=== PATIENT | male | born 1980 | race Caucasian/White ===

== ENCOUNTER → 2017-02-12 14:46 | Outpatient (CLI) | payer MEDICAID, SELFPAY | PROVIDERS: PCP Internal Medicine Adolescent Medicine; Visit Provider Internal Medicine Adolescent Medicine | DX: G47.30 Sleep apnea, unspecified (principal); R06.83 Snoring; I10 Essential (primary) hypertension; E66.9 Obesity, unspecified | CPT/HCPCS: 95806 ==

== ENCOUNTER 2017-03-07 10:51 | Emergency (ER) | payer MEDICAID, SELFPAY ==
[2017-03-07 11:35] VITALS: BP 158/86; PULSE 71; RESP 18; TEMP 36.9; O2SAT 98; BMI 35.2
--- NOTE | 2017-03-07 11:40 | PC.NURSE ---
Pt sent to ER for further evaluation.
[2017-03-07 11:41] VITALS: BP 143/88; PULSE 75; RESP 18; TEMP 36.8; O2SAT 98; BMI 35.2
--- NOTE | 2017-03-07 11:48 | CT_ITS ---
CT head/brain wo con HISTORY: Left-sided numbness ITS.REASON: NUMBNESS LEFT SIDE ORDERING PHYSICIAN: Debbi Flowers PATIENT AGE: 36 years COMPARISON: 10/30/2014 TECHNIQUE: Axial images obtained without contrast. Brain and bone windows reviewed. FINDINGS: No midline shift, mass effect, intracranial hemorrhage, hydrocephalus, or extra-axial fluid collection is evident. The calvarium has an unremarkable appearance. No mastoid effusion. No sinus air-fluid levels.. There is a retention cyst involving the medial wall left maxillary sinus IMPRESSION: No change with no acute intracranial findings
[2017-03-07 12:05] LABS: Microscopic, Urine URINE MICROSCOPIC (MICROSCOPIC)
[2017-03-07 12:10] LABS: Appearance,Urine CLEAR (Clear); Bilirubin,Urine Negative (Negative); Blood, Urine Negative (Negative); Color,Urine YELLOW (Yellow); Glucose,Urine (UA) Negative (Negative); Ketones,Urine Negative (Negative); Leukocyte Esterase,Urine Negative (Negative); Nitrate,Urine Negative (Negative); PH,Urine 6.5 (5.0-8.5); Protein,Urine Negative (Negative); Specific Gravity, Urine <= 1.005 (1.005-1.030); Urobilinogen,Urine 0.2 EU/dl (0.2)
[2017-03-07 12:11] LABS: Basophils % 0.2 % (0.1-2.0); Eosinophils # 0.2 K/mm3 (0.0-0.4); Eosinophils % 2.8 % (0.1-12.0); Hematocrit 48.7 % (42.0-52.0); Hemoglobin 16.4 g/dL (14.1-18.0); Lymphocytes # 1.5 K/mm3 (0.7-4.5); Lymphocytes % 22.6 K/mm3 (10-50); Mean Corpuscular HGB Conc 33.6 g/dL (31.8-35.4); Mean Corpuscular Hemoglobin 29.7 pg (27.0-31.2); Mean Corpuscular Volume 88.3 fl (80-94); Mean Platelet Volume 8.4 fl (7.4-10.4); Monocytes # 0.3 K/mm3 (0.1-1.0); Monocytes % 5.2 % (1.7-9.3); Neutrophils # 4.5 K/mm3 (1.8-7.8); Neutrophils % 69.2 % (37.0-80.0); Platelet Count 261 K/mm3 (142-424); Red Blood Count 5.51 M/mm3 (4.60-6.20); Red Cell Distribution Width 12.3 % (11.5-17.5); White Blood Count 6.6 K/mm3 (4.8-10.8)
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
--- NOTE | 2017-03-07 12:31 | ED_ITS ---
ED Disposition Clinical Impression: Numbness, Blurry vision, Headache Disposition: Home, Self-Care Condition on Discharge: Good Additional Instructions: 1- DAILY ASPIRIN. 2- SEE DR ARAUJO FOR CERVICAL MRI. 3- SEE DR VIEYRA FOR FULL EYE EXAM. 4- RETURN IF NEEDED. Referrals: Andres Araujo MD [Primary Care Provider] - - Critical Care Critical Care Time: No Attestation: On 03/07/17, the high probability of a clinically significant, sudden or life threatening deterioration of the following system(s) required my full and direct attention, intervention and personal management. The time I documented below is in addition to time spent performing reported procedures but includes the following listed in this critical care notation. Medical Decision Making Vital Signs: 03/07/17 11:35 03/07/17 11:41 Temperature 98.4 F 98.2 F Temperature Source Temporal Artery Scan Oral Pulse Rate [Right Brachial] 71 75 Respiratory Rate 18 18 Blood Pressure [Right Arm] 158/86 143/88 Blood Pressure Mean [Right Arm] 110 106 Blood Pressure Source [Right Arm] Automatic Cuff Automatic Cuff Blood Pressure Position [Right Arm] Sitting Sitting 02 Sat by Pulse Oximetry 98 98 Oxygen Delivery Method Room Air Room Air - Lab Data Lab Results 03/07/17 11:55: WBC 6.6, RBC 5.51, Hgb 16.4, Hct 48.7, MCV 88.3, MCH 29.7, MCHC 33.6, RDW 12.3, Plt Count 261, MPV 8.4, Neut % (Auto) 69.2, Lymph % (Auto) 22.6 , [place] % (Auto) 5.2, Eos % (Auto) 2.8, Baso % (Auto) 0.2, Neut # (Auto) 4.5, Lymph # (Auto) 1.5, [place] # (Auto) 0.3, Eos # (Auto) 0.2, Baso # (Auto) 0.0 03/07/17 11:55: Sodium 144, Potassium 4.3, Chloride 104, Carbon Dioxide 31, Anion Gap 13.3, BUN 13, Creatinine 0.99, Estimated Creat Clear 172, Estimated GFR 86, Est GFR ( Amer) 103, Glucose 107 H, Calcium 9.2, Total Bilirubin 0.4, AST 37, ALT 82 H, Alkaline Phosphatase 112, Total Protein 7.8, Albumin 4.3 , Globulin 3.5 H, Albumin/Globulin Ratio 1.2 03/07/17 11:55: Hemoglobin A1c 5.5 03/07/17 11:55: Urine Color Yellow, Urine Appearance Clear, Urine pH 6.5, Ur Specific [place] <= 1.005, Urine Protein Negative, Urine Glucose (UA) Negative, Urine Ketones Negative, Urine Blood Negative, Urine Nitrate Negative, Urine Bilirubin Negative, Urine Urobilinogen 0.2, Ur Leukocyte Esterase Negative, Urine WBC Occasional, Ur Squamous Epith Cells Occasional, Urine Bacteria Trace, Urine Mucus 1+ 03/07/17 11:55: D-Dimer < 100 Result diagrams: 03/07/17 11:55 03/07/17 11:55 Orders (Tests/Meds): ORDERS Category Date Time Status Cardiac Enzymes Stat Lab 03/07/17 13:19 Received ECG Request by /Meghan Stat Y 03/07/17 12:26 Ordered - CT Data CT Scan: Head Time Received: 14:[address] Reviewed: Yes: I have viewed the radiologist's interpretation Preliminary Findings: Normal/NAD - ECG Data Tracing #1 Say that when normal sinus rhythm 68/min no acute ECG initial impression date: 03/07/17 - Clay Inquiry Pt receiving controlled substance: No Clay was queried for this patient: No Medical Decision Making Narrative: The patient underwent negative blood work negative PET scan normal EKG. troponin and d-dimer were negative. Advised him to see his primary care physician to obtain cervical MRI and EMG of the upper extremity for possible cervical disc disease. So we need to have an eye evaluation for his headache and blurred vision. The [facility]
[2017-03-07 12:33] LABS: Alanine Aminotransferase 82 U/L (12-78); Albumin Level 4.3 gm/dL (3.4-5.0); Albumin/Globulin Ratio 1.2 (1.1-1.8); Alkaline Phosphatase 112 U/L (46-116); Anion Gap 13.3 mEq/L (5-15); Bacteria,Urine Trace /lpf; Bilirubin,Total 0.4 mg/dL (0.2-1.0); Blood Urea Nitrogen 13 mg/dL (7-18); Calcium 9.2 mg/dL (8.5-10.1); Carbon Dioxide 31 mmol/L (21.0-32.0); Chloride 104 mmol/L (98-107); Creatinine Clearance Estimated 172 mL/min (0-300); Creatinine,Serum 0.99 mg/dL (0.70-1.30); Estimated Glomerular Filt Rate 86 ml/min (>60); GFR (African American) 103 ML/MIN (>60); Globulin 3.5 gm/dl (1.3-3.2); Glucose 107 mg/dL (74-106); Mucus,Urine 1+ /lpf; Sodium 144 mmol/L (136-145); Squamous Epithelial Cell,Urine Occasional #/hpf (0-5); Total Protein,Serum 7.8 gm/dL (6.4-8.2); WBC,Urine Occasional #/hpf (0-3)
[2017-03-07 12:37] LABS: Hemoglobin A1C 5.5 % (0.0-7.0)
[2017-03-07 12:39] LABS: Potassium 4.3 mmoL/L (3.5-5.1)
[2017-03-07 12:40] LABS: Aspartate Amino Transferase 37 U/L (15-37)
[2017-03-07 13:05] LABS: D-Dimer < 100 (0-400)
[2017-03-07 14:27] LABS: CKMB Relative Index 0.3 U/L (0-4.0); Creatine Kinase 176 U/L (39-308); Creatine Kinase MB < 0.5 mg/ml (0.0-3.6); Troponin I < 0.02 ng/ml (0.00-0.06)
[2017-03-07 14:30] VITALS: BP 145/68; PULSE 68; RESP 18; O2SAT 98
== END 2017-03-07 14:31 | disposition home or self-care (01) ==
LOC: UTC 10:59 → ER 11:36
PROVIDERS: Emergency Medicine; Emergency Provider Nurse Practitioner; PCP Internal Medicine Adolescent Medicine
DX: R20.2 Paresthesia of skin (principal); H53.8 Other visual disturbances; R51 Headache; G47.33 Obstructive sleep apnea (adult) (pediatric); E66.9 Obesity, unspecified; F17.210 Nicotine dependence, cigarettes, uncomplicated
CPT/HCPCS: 70450; 80053; 81001; 82550; 82553; 83036; 84484; 85025; 85378; 93005; 99281

== ENCOUNTER → 2017-04-22 06:40 | Outpatient (CLI) | payer MEDICAID, SELFPAY ==
[2017-04-22 08:14] LABS: Alanine Aminotransferase 91 U/L (12-78); Albumin/Globulin Ratio 1.2 (1.1-1.8); Alkaline Phosphatase 116 U/L (46-116); Aspartate Amino Transferase 23 U/L (15-37); Bilirubin,Total 0.7 mg/dL (0.2-1.0); Blood Urea Nitrogen 13 mg/dL (7-18); Calcium 8.8 mg/dL (8.5-10.1); Carbon Dioxide 28 mmol/L (21.0-32.0); Chloride 104 mmol/L (98-107); Chol/HDL Ratio 4.3 (1-3.5); Cholesterol 164 mg/dL (140-200); Creatinine,Serum 0.98 mg/dL (0.70-1.30); Estimated Glomerular Filt Rate 87 ml/min (>60); GFR (African American) 105 ML/MIN (>60); Globulin 3.4 gm/dl (1.3-3.2); Glucose 109 mg/dL (74-106); HDL Cholesterol 38 mg/dL (27-67); LDL Cholesterol 106 mg/dL (0-130); Sodium 139 mmol/L (136-145); Total Protein,Serum 7.4 gm/dL (6.4-8.2); Triglycerides 100 mg/dL (30-200); VLDL Cholesterol 20 mg/dL (0-40)
== END ==
PROVIDERS: PCP Internal Medicine Adolescent Medicine; Visit Provider Nurse Practitioner Family
DX: I10 Essential (primary) hypertension (principal); E78.2 Mixed hyperlipidemia
CPT/HCPCS: 36415; 80053; 80061

== ENCOUNTER → 2017-04-22 07:00 | Outpatient (CLI) | payer MEDICAID, SELFPAY | PROVIDERS: Visit Provider Nurse Practitioner Family | DX: E78.2 Mixed hyperlipidemia (principal); I10 Essential (primary) hypertension | CPT/HCPCS: 36415; 80053; 80061 ==

== ENCOUNTER 2017-05-02 17:28 | Emergency (ER) | payer OTHER, MEDICAID, SELFPAY ==
[2017-05-02 17:29] VITALS: BP 138/86; PULSE 92; RESP 20; TEMP 36.6; O2SAT 94; BMI 34.5
[2017-05-02 17:33] VITALS: BMI 34.5
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
--- NOTE | 2017-05-02 17:47 | PC.NURSE ---
1745 PT TO RAD
[2017-05-02 18:14] LABS: Basophils % 0.2 % (0.1-2.0); Eosinophils # 0.1 K/mm3 (0.0-0.4); Eosinophils % 1.1 % (0.1-12.0); Hematocrit 53.1 % (42.0-52.0); Hemoglobin 16.6 g/dL (14.1-18.0); Lymphocytes # 1.9 K/mm3 (0.7-4.5); Lymphocytes % 29.4 K/mm3 (10-50); Mean Corpuscular HGB Conc 31.2 g/dL (31.8-35.4); Mean Corpuscular Volume 96.3 fl (80-94); Mean Platelet Volume 7.1 fl (7.4-10.4); Monocytes # 0.3 K/mm3 (0.1-1.0); Monocytes % 4.9 % (1.7-9.3); Neutrophils # 4.2 K/mm3 (1.8-7.8); Neutrophils % 64.4 % (37.0-80.0); Platelet Count 258 K/mm3 (142-424); Red Blood Count 5.52 M/mm3 (4.60-6.20); Red Cell Distribution Width 13.1 % (11.5-17.5); White Blood Count 6.6 K/mm3 (4.8-10.8)
[2017-05-02 18:23] LABS: Alanine Aminotransferase 89 U/L (12-78); Albumin Level 4.1 gm/dL (3.4-5.0); Albumin/Globulin Ratio 1.1 (1.1-1.8); Alkaline Phosphatase 118 U/L (46-116); Anion Gap 10.6 mEq/L (5-15); Aspartate Amino Transferase 29 U/L (15-37); Bilirubin,Total 0.4 mg/dL (0.2-1.0); Blood Urea Nitrogen 13 mg/dL (7-18); Calcium 8.9 mg/dL (8.5-10.1); Carbon Dioxide 29 mmol/L (21.0-32.0); Chloride 101 mmol/L (98-107); Creatinine Clearance Estimated 174 mL/min (0-300); Creatinine,Serum 0.96 mg/dL (0.70-1.30); Estimated Glomerular Filt Rate 89 ml/min (>60); GFR (African American) 107 ML/MIN (>60); Globulin 3.7 gm/dl (1.3-3.2); Glucose 96 mg/dL (74-106); Potassium 3.6 mmoL/L (3.5-5.1); Salicylate 1.2 mg/dL (2.8-20.0); Sodium 137 mmol/L (136-145); Total Protein,Serum 7.8 gm/dL (6.4-8.2)
[2017-05-02 18:24] LABS: Acetaminophen 0 ug/mL (10-30); Ethyl Alcohol 0 mg/dL (0-99)
[2017-05-02 18:39] LABS: CKMB Relative Index 0.5 U/L (0-4.0); Creatine Kinase 419 U/L (39-308); Creatine Kinase MB 2.3 ng/ml (0.0-3.6); Troponin I < 0.02 ng/ml (0.00-0.06)
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
[2017-05-02 19:05] LABS: Amphetamine/Metha Screen,Urine Negative ng/mL (<1000); Barbiturates Screen,Urine Negative ng/mL (<200); Benzodiazepines Screen,Urine Negative ng/mL (200); Cannabinoid Screen,Urine Negative ng/mL (<50); Cocaine Screen,Urine Negative ng/g (<300); Methadone Screen,Urine Negative ng/mL (<300); Opiate Screen,Urine Negative ng/mL (<300); Phencyclidine Screen,Urine Negative ng/mL (<25)
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
[2017-05-02 20:19] LABS: CKMB Relative Index 0.5 U/L (0-4.0); Creatine Kinase 338 U/L (39-308); Creatine Kinase MB 1.7 ng/ml (0.0-3.6); Troponin I < 0.02 ng/ml (0.00-0.06)
[2017-05-02 21:41] VITALS: BP 119/62; PULSE 85; RESP 20; TEMP 37.1; O2SAT 99
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
== END 2017-05-02 21:41 | disposition still patient (30) ==
PROVIDERS: Emergency Provider Emergency Medicine; PCP Internal Medicine Adolescent Medicine
DX: S00.80XA Unspecified superficial injury of other part of head, initial encounter (principal); S20.219A Contusion of unspecified front wall of thorax, initial encounter; V87.7XXA Person injured in collision between other specified motor vehicles (traffic), initial encounter; I25.10 Atherosclerotic heart disease of native coronary artery without angina pectoris; I10 Essential (primary) hypertension; K21.9 Gastro-esophageal reflux disease without esophagitis
CPT/HCPCS: 70450; 71045; 71100; 71275; 72125; 72128; 72131; 72170; 80053; 80305; 80329; 82550; 82553; 84484; 85025; 93005; 96365; 99283; Q9967

== ENCOUNTER → 2017-05-24 16:31 | Outpatient (CLI) | payer MEDICAID, SELFPAY ==
--- NOTE | 2017-05-24 16:34 | XR_ITS ---
XR chest 2V HISTORY: ITS.REASON: wheezing ORDERING PHYSICIAN: Viji Sunshine MD PATIENT AGE: 37 years COMPARISON: 05/02/2017 FINDINGS: The cardiomediastinal silhouette and pulmonary vascularity are within normal limits. The lungs are clear without infiltrates, suspicious nodules, or pleural effusions. No acute bony abnormalities. IMPRESSION: Negative chest, no acute finding
== END ==
PROVIDERS: PCP Internal Medicine Adolescent Medicine; Visit Provider Specialist
DX: R06.2 Wheezing (principal)
CPT/HCPCS: 71046

== ENCOUNTER → 2017-07-08 08:52 | Outpatient (CLI) | payer MEDICAID, SELFPAY ==
--- NOTE | 2017-07-08 08:55 | FL_ITS ---
EXAM: Barium swallow/esophagram. INDICATION: ITS.REASON: swallowing prob ORDERING PHYSICIAN: Viet Romo MD PATIENT AGE: 37 years COMPARISON: None TECHNIQUE: In the upright position the patient was observed to swallow barium in both the AP and lateral view. The cervical esophagus was examined under fluoroscopy with images obtained. The patient was then placed prone in the right anterior oblique position and was observed to swallow barium with Valsalva technique . FLUOROSCOPY TIME: 49 seconds FINDINGS: There was no evidence of aspiration. There was normal peristalsis. There is a area of decreased contrast density along the lateral aspect of the hypopharynx on the frontal view. This is more prominent on the initial swallow there was persistent on the repeat AP swallow. This could represent nondistention however, one cannot exclude the possibility of a mucosal lesion. Direct visualization is suggested. The thoracic portion of the esophagus has an unremarkable appearance. There was some minimal indentation of the posterior aspect of the esophagus by spurs at C5-C6. IMPRESSION: 1. Small filling defect along the left aspect of the hypopharynx possibly related to nondistention. Cannot exclude mucosal lesion. Direct visualization is suggested. 2. Mild posterior indentation upon the esophagus by spurring at C5-C6. 3. Otherwise negative barium swallow
== END ==
PROVIDERS: PCP Internal Medicine Adolescent Medicine; Visit Provider Otolaryngology
DX: R13.10 Dysphagia, unspecified (principal)
CPT/HCPCS: 74220

== ENCOUNTER → 2017-07-29 09:49 | Outpatient (CLI) | payer MEDICAID, SELFPAY ==
--- NOTE | 2017-07-29 09:58 | XR_ITS ---
XR cervical spine 5V XR thoracic spine 3V , XR lumbar spine min 4V, Ordering Physician: Sherice Turner Patient Age: 37 years: Male HISTORY: ITS.REASON: THORACIC SPINE PAIN Patient denies cervical pain. No injury. TECHNIQUE: CERVICAL SPINE Series: 5 view AP lateral both obliques and open-mouth odontoid view T-SPINE Series. 3 images. AP, lateral & swimmer's view L-SPINE series. Five-view COMPARISON : CT cervical, thoracic and lumbar spine 05/02/[address] C-spine from 2006 ======= CERVICAL SPINE SERIES: . Nonspecific straightening. No fracture nor subluxation. . Prevertebral soft tissues normal. C1-C2 relationships normal.. Mild disc space narrowing posteriorly C6/7.Uncovertebral joint hypertrophy encroach upon the right foramen at C6/7. Mild facet arthropathy most evident to the right at this level as well . Trace minor hypertrophic ridging likely at C5/6 C4/5. No foraminal encroachment and these disc spaces are fairly well-maintained at these levels. C1-C2 relationships normal Apices of the lungs are clear with no findings in this region. Minimal calcifications carotid. Old osseous fragment at posterior margin of the T1 spinous process. Old and corticated.. Unchanged since 2006 CT ......... IMPRESSION: ...... C-spine-... No change since CT C-spine from 05/02/2017 Mild disc space narrowing C6/7. Rightward Uncovertebral joint hypertrophy along with right facet arthropathy/hypertrophy yield moderate right foraminal encroachment at C6/7. THORACIC SPINE series: No change since 05/02/2017 CT thoracic spine. Similar pattern.. No acute findings.. No fracture nor dislocation. No new or significant compression fractures.. Perhaps mild early degenerative space narrowing at mid thoracic region associated with minimal anterior marginal osteophytes most evident the mid T-spine. It disc space narrowing most evident at T8/9On frontal projection but less evident on lateral view. These features unchanged since prior study. The cervical thoracic junction satisfactory. Pedicles intact no paraspinal mass. ----IMPRESSION--- T-spine------ No significant change since CT thoracic spine 05/02/2017. Minor degenerative disc changes and minimal anterior marginal osteophytes, most evident at the mid T-spine and towards lower T-spine.. ======== LUMBAR SPINE series:. The lumbar vertebral bodies appear intact with no change since 05/02/2017.. Slight disc space narrowing L5/S1 L4/5 posteriorly. Minor anterior marginal osteophytes lower L-spine. Pedicles transverse processes SI joints unremarkable. No spondylolysis nor listhesis. No prominent facet arthropathy on plain film. Only scant facet arthropathy at lower 2 levels ------IMPRESSION.-------- L-spine Lumbar spine with No change since since 05/02/2017 CT study . Minor degenerative degenerative disc space narrowing posteriorly at L4/5 L5/S1
== END ==
PROVIDERS: PCP Internal Medicine Adolescent Medicine; Visit Provider Nurse Practitioner Family
DX: M54.2 Cervicalgia (principal); M48.9 Spondylopathy, unspecified; M54.6 Pain in thoracic spine; M54.5 Low back pain
CPT/HCPCS: 72050; 72072; 72110

== ENCOUNTER → 2017-07-30 07:19 | Outpatient (CLI) | payer MEDICAID, SELFPAY ==
[2017-07-30 10:31] LABS: Alanine Aminotransferase 66 U/L (12-78); Albumin Level 3.7 gm/dL (3.4-5.0); Albumin/Globulin Ratio 1.2 (1.1-1.8); Alkaline Phosphatase 112 U/L (46-116); Anion Gap 10.9 mEq/L (5-15); Aspartate Amino Transferase 26 U/L (15-37); Bilirubin,Total 0.3 mg/dL (0.2-1.0); Blood Urea Nitrogen 13 mg/dL (7-18); Calcium 8.6 mg/dL (8.5-10.1); Carbon Dioxide 29 mmol/L (21.0-32.0); Chloride 105 mmol/L (98-107); Chol/HDL Ratio 5.8 (1-3.5); Cholesterol 180 mg/dL (140-200); Creatinine,Serum 0.92 mg/dL (0.70-1.30); Estimated Glomerular Filt Rate 93 ml/min (>60); GFR (African American) 112 ML/MIN (>60); Glucose 107 mg/dL (74-106); HDL Cholesterol 31 mg/dL (27-67); LDL Cholesterol 114 mg/dL (0-130); Potassium 3.9 mmoL/L (3.5-5.1); Sodium 141 mmol/L (136-145); Total Protein,Serum 6.7 gm/dL (6.4-8.2); Triglycerides 173 mg/dL (30-200); VLDL Cholesterol 35 mg/dL (0-40)
== END ==
PROVIDERS: Visit Provider Nurse Practitioner Family
DX: Z00.00 Encounter for general adult medical examination without abnormal findings (principal); E78.2 Mixed hyperlipidemia; I10 Essential (primary) hypertension
CPT/HCPCS: 36415; 80053; 80061

== ENCOUNTER 2017-08-26 13:30 | Outpatient (RCR) | payer MEDICAID, SELFPAY | END 2017-08-26 13:31 | disposition home or self-care (01) | LOC: PT 13:30 | PROVIDERS: PCP Internal Medicine Adolescent Medicine; Visit Provider Nurse Practitioner Family | DX: M54.6 Pain in thoracic spine (principal); M54.2 Cervicalgia | CPT/HCPCS: 97110; 97163 ==

== ENCOUNTER → 2017-09-08 20:21 | Outpatient (CLI) | payer MEDICAID, SELFPAY | PROVIDERS: PCP Internal Medicine Adolescent Medicine; Visit Provider Nurse Practitioner Family | DX: G47.33 Obstructive sleep apnea (adult) (pediatric) (principal); I10 Essential (primary) hypertension | CPT/HCPCS: 95811 ==

== ENCOUNTER → 2019-06-20 09:54 | Outpatient (CLI) | payer OTHER, SELFPAY ==
[2019-06-20 10:41] LABS: Alanine Aminotransferase 46 U/L (12-78); Albumin Level 4.5 g/dl (3.5-5.0); Albumin/Globulin Ratio 1.6 (1.1-1.8); Alkaline Phosphatase 96 U/L (38-126); Anion Gap 8.4 mEq/L (5-15); Aspartate Amino Transferase 31 U/L (17-59); Bilirubin,Total 0.4 mg/dl (0.2-1.3); Blood Urea Nitrogen 12 mg/dl (9-20); Calcium 9.7 mg/dl (8.4-10.2); Carbon Dioxide 30 mmol/L (22.0-30.0); Chloride 102 mmol/L (98-107); Chol/HDL Ratio 6.6 (1-3.5); Cholesterol 279 mg/dl (140-200); Estimated Glomerular Filt Rate 108 ml/min (>60); GFR (African American) 130 ML/MIN (>60); Globulin 2.9 g/dL (1.3-3.2); Glucose 109 mg/dl (74-100); HDL Cholesterol 42 mg/dl (40-60); Potassium 4.4 mmoL/L (3.5-5.1); Sodium 136 mmol/L (136-145); Total Protein,Serum 7.4 g/dl (6.3-8.2); Triglycerides 298 mg/dl (30-150); VLDL Cholesterol 60 mg/dL (0-40)
[2019-06-20 11:08] LABS: Direct LDL Cholesterol 187.78 mg/dL (100-129)
== END ==
PROVIDERS: Visit Provider Internal Medicine Adolescent Medicine
DX: E78.2 Mixed hyperlipidemia (principal)
CPT/HCPCS: 36415; 80053; 80061

== ENCOUNTER → 2020-05-04 07:21 | Outpatient (CLI) | payer OTHER, SELFPAY ==
[2020-05-04 07:38] LABS: Basophils % 0.3 % (0.1-2.0); Eosinophils # 0.2 K/mm3 (0.0-0.4); Eosinophils % 2.7 % (0.1-12.0); Hematocrit 48.8 % (42.0-52.0); Hemoglobin 16.5 g/dL (14.1-18.0); Lymphocytes # 1.6 K/mm3 (0.7-4.5); Lymphocytes % 23.3 % (10-50); Mean Corpuscular HGB Conc 33.9 g/dL (31.8-35.4); Mean Corpuscular Hemoglobin 29.6 pg (27.0-31.2); Mean Corpuscular Volume 87.3 fl (80-94); Mean Platelet Volume 7.3 fl (7.4-10.4); Monocytes # 0.3 K/mm3 (0.1-1.0); Monocytes % 4.9 % (1.7-9.3); Neutrophils # 4.8 K/mm3 (1.8-7.8); Neutrophils % 68.8 % (37.0-80.0); Platelet Count 263 K/mm3 (142-424); Red Blood Count 5.59 M/mm3 (4.60-6.20)
[2020-05-04 08:40] LABS: Alanine Aminotransferase 35 U/L (12-78); Albumin Level 4.3 g/dl (3.5-5.0); Albumin/Globulin Ratio 1.9 (1.1-1.8); Alkaline Phosphatase 117 U/L (38-126); Anion Gap 10.1 mEq/L (5-15); Aspartate Amino Transferase 31 U/L (17-59); Bilirubin,Total 0.5 mg/dl (0.2-1.3); Blood Urea Nitrogen 9 mg/dl (9-20); Calcium 9.1 mg/dl (8.4-10.2); Carbon Dioxide 28 mmol/L (22.0-30.0); Chloride 104 mmol/L (98-107); Chol/HDL Ratio 4.6 (1-3.5); Cholesterol 178 mg/dl (140-200); Estimated Glomerular Filt Rate 108 ml/min (>60); GFR (African American) 130 ML/MIN (>60); Globulin 2.3 g/dL (1.3-3.2); Glucose 107 mg/dl (74-100); HDL Cholesterol 39 mg/dl (40-60); Potassium 4.1 mmoL/L (3.5-5.1); Sodium 138 mmol/L (136-145); Total Protein,Serum 6.6 g/dl (6.3-8.2); Triglycerides 116 mg/dl (30-150); VLDL Cholesterol 23 mg/dL (0-40)
[2020-05-04 08:51] LABS: Direct LDL Cholesterol 109.72 mg/dL (100-129)
[2020-05-06 13:37] LABS: Hemoglobin A1C 5.5 % (4.0-6.0)
== END ==
PROVIDERS: Visit Provider Internal Medicine Adolescent Medicine
DX: E78.2 Mixed hyperlipidemia (principal); I10 Essential (primary) hypertension; R73.9 Hyperglycemia, unspecified
CPT/HCPCS: 36415; 80053; 80061; 83036; 85025

== ENCOUNTER → 2021-05-29 11:26 | Outpatient (CLI) | payer OTHER, SELFPAY ==
--- NOTE | 2021-05-29 11:34 | XR_ITS ---
FINAL REPORT CLINICAL HISTORY: LUMBAGO WITH SCIATICA, LEFT SIDE ....OTHER CHRONIC PAIN FINDINGS: LUMBAR SPINE Three views were obtained. There is no acute fracture. There is no malalignment. There are stable mild degenerative changes with osteophytes. There is no soft tissue abnormality. IMPRESSION: Stable mild degenerative changes. Reviewed, Interpreted and Dictated by Jayce Rod III, MD Transcribed by Jessi Bright Authenticated by Jayce Rod III, MD on 05/29/2021 01:01:[address] [facility]
== END ==
PROVIDERS: Visit Provider Nurse Practitioner Family
DX: M54.42 Lumbago with sciatica, left side (principal); G89.29 Other chronic pain
CPT/HCPCS: 72100

== ENCOUNTER 2023-08-04 13:20 | Emergency (ER) | payer OTHER, SELFPAY ==
[2023-08-04] VITALS (7 sets, daily range): BP systolic 116–170; BP diastolic 76–110; PULSE 62–101; RESP 18; TEMP 36.5; O2SAT 94–97; BMI 37.3
--- NOTE | 2023-08-04 13:21 | ECG_ITS ---
APPROVED REPORT Exam: Resting ECG HR:97 bpm ECG Measurements Heart Rate 97 AXES TX 153 P 68 QRSd 106 QRS 44 QT 351 T 48 QTc 406 Conclusion SINUS RHYTHM NORMAL ECG UNCONFIRMED REPORT Electronically signed by : Pablo Duran, 08/04/2023 15:26:50
[2023-08-04 13:47] LABS: Basophils # 0.1 K/mm3 (0-0.2); Basophils % 0.7 % (0.1-2.0); Eosinophils # 0.3 K/mm3 (0.0-0.4); Eosinophils % 3.5 % (0.1-12.0); Hematocrit 49.7 % (42.0-52.0); Hemoglobin 16.9 g/dL (14.1-18.0); Lymphocytes # 1.7 K/mm3 (0.7-4.5); Lymphocytes % 18.5 % (10-50); Mean Corpuscular Hemoglobin 31.5 pg (27.0-31.2); Mean Corpuscular Volume 92.7 fl (80-94); Mean Platelet Volume 7.8 fl (7.4-10.4); Monocytes # 0.5 K/mm3 (0.1-1.0); Neutrophils # 6.8 K/mm3 (1.8-7.8); Neutrophils % 72.3 % (37.0-80.0); Platelet Count 275 K/mm3 (142-424); Red Blood Count 5.37 M/mm3 (4.60-6.20); Red Cell Distribution Width 13.6 % (11.5-17.5); White Blood Count 9.4 K/mm3 (4.8-10.8)
[2023-08-04 13:53] LABS: Chloride 104 mmol/L (98-107); Sodium 140 mmol/L (136-145)
[2023-08-04 13:54] LABS: Potassium 3.9 mmoL/L (3.5-5.1)
[2023-08-04 13:56] LABS: Alanine Aminotransferase 48 U/L (12-78); Albumin Level 4.5 g/dl (3.5-5.0); Albumin/Globulin Ratio 1.4 (1.1-1.8); Alkaline Phosphatase 90 U/L (38-126); Anion Gap 10.9 mEq/L (5-15); Aspartate Amino Transferase 39 U/L (17-59); Bilirubin,Total 0.5 mg/dl (0.2-1.3); Blood Urea Nitrogen 10 mg/dl (9-20); Carbon Dioxide 29 mmol/L (22.0-30.0); Creatinine Clearance Estimated 187 mL/min (50-200); Estimated Glomerular Filt Rate 92 ml/min (>60); GFR (African American) 111 ML/MIN (>60); Globulin 3.2 g/dL (1.3-3.2); Total Protein,Serum 7.7 g/dl (6.3-8.2)
[2023-08-04 13:57] LABS: Calcium 9.4 mg/dl (8.4-10.2); Glucose 118 mg/dl (74-100)
--- NOTE | 2023-08-04 14:10 | PC.NURSE ---
Abdiel LLOYD at BS for pt eval
--- NOTE | 2023-08-04 14:10 | ED_ITS ---
<Statement entered by Saray Duran MD - 08/05/23 23:01> I was consulted by the DIVYA, and we discussed the complexity of the problems being addressed. I approved the treatment and management plan for this patient's care in the emergency department, thus performing a substantive portion of the medical decision making. Saray Duran MD, MELANI, FACEP Discharge Plan Disposition Patient Disposition: Home, Self-Care Condition: Good Prescriptions Prescriptions: No Action ranitidine HCl 150 mg tablet PO 30 Days Qty: 60 Patient Comments: diclofenac sodium 75 mg tablet,delayed release (DR/EC) PO 30 Days Qty: 60 Patient Comments: take 1 tablet by mouth twice a day amlodipine 10 mg tablet PO 30 Days Qty: 30 Patient Comments: cetirizine 10 mg tablet PO 30 Days Qty: 30 Patient Comments: potassium chloride 10 mEq tablet extended release PO 30 Days Qty: 30 Patient Comments: take 1 tablet by mouth once daily omeprazole 20 mg capsule,delayed release(DR/EC) PO 30 Days Qty: 30 Patient Comments: atorvastatin 40 mg tablet PO 30 Days Qty: 30 Patient Comments: fluticasone propionate 50 mcg/actuation spray,suspension INTRANASAL 30 Days Qty: 16 Patient Comments: instill 1 spray into each nostril once daily psyllium powder PO 30 Days Qty: 284 Patient Comments: Referrals Follow up/Referrals: ProviderEryn MD [Primary Care Provider] - See instructions Jose Cruz Cain MD [Staff Physician] - See instructions Activity Restrictions/Add. Instructions Additional Instructions/Restrictions: Please follow-up with your PCP for routine lab work and further outpatient workup for your symptoms. I have referred you to cardiology to complete your cardiac workup. Return to ER for any worsening signs or symptoms as needed. Clinical Impressions Clinical Impression: Episodic lightheadedness, Chest pain Instructions Patient Instructions: DI for Chest Pain Discharge ED Provider: Saray Duran HPI <CHRISTIANA Blanco - Last Filed: 08/04/23 15:57> General Chief Complaint: Chest Pain Stated Complaint: cp Time Seen by Provider: 08/04/23 14:10 Mode of Arrival: Ambulatory Source of Information: Patient Limitations: No Limitations Description of Symptoms (Recalled from ER Triage Doc. by RN): pt c/o L chest pain, LUQ pain, HTN, weakness and dizziness x2.5 months. pt reports his pain is sharp in nature and a 7/10. pt states the pain has been worse today prompting him to come in. pt also states he thinks he has an infection because when he wakes up his eyes are gooey and theres white stuff on {his} mouth. pt has a hx of HTN and HLD. However, he states he does not take his medicine due to not going to the dr. History of Present Illness HPI narrative: Patient presents for evaluation of multiple complaints. Patient has very infrequent contact with healthcare by his choice. He presents today for longstanding multiple complaints including left upper quadrant/chest pain, lightheadedness, paresthesias, constipation. Patient has no acute symptoms however his most troublesome complaint is feeling lightheaded occasionally. Again most of these complaints have been going on for years to months but the lightheadedness is the most problematic for him. Patient does report episodic occasional alcohol intake, denies illicit or street drug use, denies shortness of breath fever chills hemoptysis hematochezia melena nausea vomiting diarrhea diaphoresis headache change in vision taste or any other senses no focal neurologic deficits. Related Data Home Medications Medication Instructions Recorded Confirmed amlodipine 10 mg tablet PO 30 days ##30 05/24/17 atorvastatin 40 mg tablet PO 30 days ##30 05/24/17 cetirizine 10 mg tablet PO 30 days ##30 05/24/17 diclofenac sodium 75 mg PO 30 days ##60 05/24/17 tablet,delayed release fluticasone propionate 50 intranasal 30 days ##16 05/24/17 mcg/actuation nasal spray,suspension omeprazole 20 mg capsule,delayed PO 30 days ##30 05/24/17 release potassium chloride 10 mEq PO 30 days ##30 05/24/17 tablet,extended release psyllium PO 30 days ##284 05/24/17 ranitidine HCl 150 mg tablet PO 30 days ##60 05/24/17 Allergies Allergy/AdvReac Type Severity Reaction Status Date / Time peanut Allergy Difficulty Verified 08/04/23 13:35 Breathing [facility] <CHRISTIANA Blanco - Last Filed: 08/04/23 15:57> [facility] Disclaimer: The information contained in this section may have been updated after the patient was seen, as this information can be updated by other users. Social History Smoking Status: Current every day smoker tobacco type: cigarettes packs per day: 1 alcohol intake: never counseling provided: none substance use type: denies use current occupational status: employed Travel in the last 8 weeks: None household members: spouse housing: house <CHRISTIANA Blanco - Last Filed: 08/04/23 15:57> ROS Obtained: Yes Systems reviewed as appropriate & no additional complaints except as documented Physical Exam <CHRISTIANA Blanco Last Filed: 08/04/23 15:57> General General appearance: alert and in no apparent distress Head Head exam: atraumatic and normal inspection Eye Eye exam: Present normal appearance, PERRL and EOMI ENT ENT exam: Present normal exam, normal oropharynx and mucous membranes moist Neck Neck exam: Present normal inspection, full ROM and trachea midline; Absent tenderness or lymphadenopathy Chest Chest inspection: Present normal inspection and symmetric chest wall rise; Absent tenderness Respiratory Respiratory exam: Present normal lung sounds bilaterally; Absent respiratory distress, wheezes, stridor or accessory muscle use Cardiovascular Cardiovascular exam: Present regular rate, normal rhythm, normal heart sounds, +S1 and +S2 Abdominal Exam Abdominal exam: Present soft (Obese) and normal bowel sounds; Absent tenderness, guarding, rebound or rigidity Extremities Exam Extremities exam: Present normal inspection and full ROM; Absent tenderness Back Exam Back exam: Present normal inspection and full ROM; Absent tenderness Neurological Exam Neurological exam: Present alert, oriented X3, normal gait and reflexes normal; Absent motor sensory deficit Psychiatric Psychiatric exam: Present normal affect and normal mood Skin Skin exam: Present warm, dry and normal color HEART Score <CHRISTIANA Blanco Last Filed: 08/04/23 15:57> HEART Score HEART Score assessment performed?: Yes History (anamnesis): Slightly suspicious ECG: Normal Age: <45 years Risk factors: 3 or more risk factors Troponin: </= normal limit HEART Score: 2 Critical Care <CHRISTIANA Blanco Last Filed: 08/04/23 15:57> Critical Care Time Critical Care Time: No Medical Decision Making <CHRISTIANA Blanco - Last Filed: 08/04/23 15:57> Medical Records Medical records reviewed: Yes I reviewed the patient's medical records. [place] Inquiry Pt receiving controlled substance: No Vital Signs Vital Signs: 08/04/23 13:21 08/04/23 13:27 08/04/23 14:23 Temperature 97.7 F Temperature Source Oral Pulse Rate 100 H 89 Pulse Rate [Right] 101 H Respiratory Rate 18 Blood Pressure 170/110 H 139/94 H Blood Pressure [Right Arm] 170/110 H Blood Pressure Mean [Right Arm] 130 Blood Pressure Source [Right Arm] Automatic Cuff Blood Pressure Position [Right Arm] Sitting 02 Sat by Pulse Oximetry 97 97 95 Oxygen Delivery Method Room Air Room Air Room Air 08/04/23 14:30 08/04/23 15:00 08/04/23 15:30 Temperature Temperature Source Pulse Rate 75 74 62 Pulse Rate [Right] Respiratory Rate Blood Pressure 136/85 125/81 128/76 Blood Pressure [Right Arm] Blood Pressure Mean [Right Arm] Blood Pressure Source [Right Arm] Blood Pressure Position [Right Arm] 02 Sat by Pulse Oximetry 94 L 96 94 L Oxygen Delivery Method Room Air Room Air Room Air Lab Data Lab results reviewed: Yes I reviewed the patient's lab results. Labs: Lab Results 08/04/23 13:30: Lipase 93, TSH 0.98 08/04/23 13:39: WBC 9.4, RBC 5.37, Hgb 16.9, Hct 49.7, MCV 92.7, MCH 31.5 H, MCHC 34.0, RDW 13.6, Plt Count 275, MPV 7.8, Neut % (Auto) 72.3, Lymph % (Auto) 18.5, [place] % (Auto) 5.0, Eos % (Auto) 3.5, Baso % (Auto) 0.7, Neut # (Auto) 6.8, Lymph # (Auto) 1.7, [place] # (Auto) 0.5, Eos # (Auto) 0.3, Baso # (Auto) 0.1, Sodium 140, Potassium 3.9, Chloride 104, Carbon Dioxide 29, Anion Gap 10.9, BUN 10, Creatinine 0.90, Estimated Creat Clear 187, Estimated GFR 92, Est GFR ( Amer) 111, Glucose 118 H, Calcium 9.4, Total Bilirubin 0.5, AST 39, ALT 48, Alkaline Phosphatase 90, Troponin I < 0.01, Total Protein 7.7, Albumin 4.5, Globulin 3.2, Albumin/Globulin Ratio 1.4 08/04/23 15:15: Urine Color Yellow, Urine Appearance Clear, Urine pH 7.0, Ur Specific [place] 1.010, Urine Protein Negative, Urine Glucose (UA) Negative, Urine Ketones Negative, Urine Blood Negative, Urine Nitrate Negative, Urine Bilirubin Negative, Urine Urobilinogen 0.2, Ur Leukocyte Esterase Negative, Urine RBC Occasional, Urine WBC None, Ur Squamous Epith Cells Occasional, Urine Bacteria None 08/04/23 13:39 08/04/23 13:39 Response Orders (Tests/Meds): ED MEDICATIONS Generic Name Dose Route Start Last Admin Trade Name Freq PRN Reason Stop Dose Admin Sodium Chloride 10 ml 08/04/23 13:36 Sodium Chloride 0.9% 10ml Flush Syringe IV 09/03/23 13:35 NEEDED PRN Maintain IV Site Discontinued Medications Generic Name Dose Route Start Last Admin Trade Name Freq PRN Reason Stop Dose Admin Acetaminophen 1,000 mg 08/04/23 14:35 08/04/23 14:48 Acetaminophen 1,000mg/100ml Vial IV 08/04/23 14:36 1,000 mg ONCE ONE Administration Belladonna Alkaloids 60 ml 08/04/23 14:35 08/04/23 14:49 Belladonna Alkaloids 60 Ml Ml PO 08/04/23 14:36 60 ml ONCE ONE Administration Lactated Ringer's 1,000 mls @ 999 mls/hr 08/04/23 14:35 08/04/23 14:49 Lactated Ringer's 1000 Ml Bag IV 08/04/23 15:35 999 mls/hr .Q1H1M ONE Administration Ketorolac Tromethamine 15 mg 08/04/23 14:35 08/04/23 14:49 Ketorolac 30mg/Ml Vial IV 08/04/23 14:36 15 mg ONCE ONE Administration ORDERS Category Date Time Status Chest XR -- portable [XR chest portable] Stat Exams 08/04/23 14:35 Taken Complete Blood Count Auto Diff Stat Lab 08/04/23 13:39 Completed Comprehensive Metabolic Panel Stat Lab 08/04/23 13:39 Completed Lipase Stat Lab 08/04/23 13:30 Completed TSH [Thyroid Stimulating Hormone] Stat Lab 08/04/23 13:30 Completed Trop T [Troponin I] Stat Lab 08/04/23 13:39 Completed Troponin I Q3H Lab 08/04/23 16:45 Ordered Troponin I Q3H Lab 08/04/23 19:45 Ordered UA [Urinalysis and Microscopic] Stat Lab 08/04/23 15:15 Completed MDM Narrative Medical Decision Narrative: In summary patient is a 43-year-old male who presents to the emergency department for evaluation of multiple complaints. Patient is initially hypertensive with a systolic blood pressure of 170/110 with a heart rate of 100 but satting at 97% on room air with a respiratory rate of 18 upon arrival, afebrile. Physical exam is remarkable for central obesity but no reproducible pain on exam of the affected area no focal neurologic deficits normal breath sounds normal heart sounds no dependent edema and a totally benign abdominal exam. Differential diagnosis includes paresthesias versus ACS versus gastrointestinal causes versus uncontrolled hypertension versus spine disease etc. Initial workup will be conducted with hematologic labs twelve-lead EKG plain film chest x-ray urinalysis. Initial interventions include Tylenol Motrin and GI cocktail. Initial workup reviewed by me shows that his hematologic labs are nonactionable, troponin is undetectable, and my informal interpretation of his plain film chest x-ray shows no acute processes prior to radiology read. Upon repeat evaluation patient reported resolution of his left upper quadrant discomfort after GI cocktail and overall feels better after intervention. Given this we have essentially ruled out any serious or life-threatening conditions and patient is appropriate for discharge with close follow-up with his PCP and referral to cardiology for further cardiac workup and restratification. <Saray Duran MD - Last Filed: 08/04/23 14:35> Vital Signs Vital Signs: 08/04/23 13:21 08/04/23 13:27 08/04/23 14:23 Temperature 97.7 F Temperature Source Oral Pulse Rate 100 H 89 Pulse Rate [Right] 101 H Respiratory Rate 18 Blood Pressure 170/110 H 139/94 H Blood Pressure [Right Arm] 170/110 H Blood Pressure Mean [Right Arm] 130 Blood Pressure Source [Right Arm] Automatic Cuff Blood Pressure Position [Right Arm] Sitting 02 Sat by Pulse Oximetry 97 97 95 Oxygen Delivery Method Room Air Room Air Room Air 08/04/23 14:30 08/04/23 15:00 08/04/23 15:30 Temperature Temperature Source Pulse Rate 75 74 62 Pulse Rate [Right] Respiratory Rate Blood Pressure 136/85 125/81 128/76 Blood Pressure [Right Arm] Blood Pressure Mean [Right Arm] Blood Pressure Source [Right Arm] Blood Pressure Position [Right Arm] 02 Sat by Pulse Oximetry 94 L 96 94 L Oxygen Delivery Method Room Air Room Air Room Air Lab Data Labs: Lab Results 08/04/23 13:30: Lipase 93, TSH 0.98 08/04/23 13:39: WBC 9.4, RBC 5.37, Hgb 16.9, Hct 49.7, MCV 92.7, MCH 31.5 H, MCHC 34.0, RDW 13.6, Plt Count 275, MPV 7.8, Neut % (Auto) 72.3, Lymph % (Auto) 18.5, [place] % (Auto) 5.0, Eos % (Auto) 3.5, Baso % (Auto) 0.7, Neut # (Auto) 6.8, Lymph # (Auto) 1.7, [place] # (Auto) 0.5, Eos # (Auto) 0.3, Baso # (Auto) 0.1, Sodium 140, Potassium 3.9, Chloride 104, Carbon Dioxide 29, Anion Gap 10.9, BUN 10, Creatinine 0.90, Estimated Creat Clear 187, Estimated GFR 92, Est GFR ( Amer) 111, Glucose 118 H, Calcium 9.4, Total Bilirubin 0.5, AST 39, ALT 48, Alkaline Phosphatase 90, Troponin I < 0.01, Total Protein 7.7, Albumin 4.5, Globulin 3.2, Albumin/Globulin Ratio 1.4 08/04/23 15:15: Urine Color Yellow, Urine Appearance Clear, Urine pH 7.0, Ur Specific [place] 1.010, Urine Protein Negative, Urine Glucose (UA) Negative, Urine Ketones Negative, Urine Blood Negative, Urine Nitrate Negative, Urine Bilirubin Negative, Urine Urobilinogen 0.2, Ur Leukocyte Esterase Negative, Urine RBC Occasional, Urine WBC None, Ur Squamous Epith Cells Occasional, Urine Bacteria None Response Orders (Tests/Meds): ED MEDICATIONS Generic Name Dose Route Start Last Admin Trade Name Freq PRN Reason Stop Dose Admin Sodium Chloride 10 ml 08/04/23 13:36 Sodium Chloride 0.9% 10ml Flush Syringe IV 09/03/23 13:35 NEEDED PRN Maintain IV Site Discontinued Medications Generic Name Dose Route Start Last Admin Trade Name Freq PRN Reason Stop Dose Admin Acetaminophen 1,000 mg 08/04/23 14:35 08/04/23 14:48 Acetaminophen 1,000mg/100ml Vial IV 08/04/23 14:36 1,000 mg ONCE ONE Administration Belladonna Alkaloids 60 ml 08/04/23 14:35 08/04/23 14:49 Belladonna Alkaloids 60 Ml Ml PO 08/04/23 14:36 60 ml ONCE ONE Administration Lactated Ringer's 1,000 mls @ 999 mls/hr 08/04/23 14:35 08/04/23 14:49 Lactated Ringer's 1000 Ml Bag IV 08/04/23 15:35 999 mls/hr .Q1H1M ONE Administration Ketorolac Tromethamine 15 mg 08/04/23 14:35 08/04/23 14:49 Ketorolac 30mg/Ml Vial IV 08/04/23 14:36 15 mg ONCE ONE Administration ORDERS Category Date Time Status Chest XR -- portable [XR chest portable] Stat Exams 08/04/23 14:35 Taken Complete Blood Count Auto Diff Stat Lab 08/04/23 13:39 Completed Comprehensive Metabolic Panel Stat Lab 08/04/23 13:39 Completed Lipase Stat Lab 08/04/23 13:30 Completed TSH [Thyroid Stimulating Hormone] Stat Lab 08/04/23 13:30 Completed Trop T [Troponin I] Stat Lab 08/04/23 13:39 Completed Troponin I Q3H Lab 08/04/23 16:45 Ordered Troponin I Q3H Lab 08/04/23 19:45 Ordered UA [Urinalysis and Microscopic] Stat Lab 08/04/23 15:15 Completed ECG Data Tracing #1: Attestation: I reviewed this ECG and interpreted as documented below: ECG Narrative: Ventricular 97 no acute ischemic changes noted normal axis no conduction abnormalities
[2023-08-04 14:15] LABS: Troponin I < 0.01 ng/ml (0.00-0.034)
--- NOTE | 2023-08-04 14:35 | XR_ITS ---
FINAL REPORT CLINICAL HISTORY: Chest pain FINDINGS: No acute pulmonary opacity is present. There is no evidence of effusion or pneumothorax. Mediastinum is unremarkable. Heart size is normal. IMPRESSION: No acute abnormality. Reviewed, Interpreted and Dictated by Karla Martínez MD Transcribed by Kenzie Irene Authenticated and [facility]
[2023-08-04] MEDS: ACETAMINOPHEN 1,000MG/100ML VIAL 1000 MG IV (14:48)
[2023-08-04] MEDS: BELLADONNA ALKALOIDS 60 ML ML PO (14:49)
[2023-08-04] MEDS: KETOROLAC 30MG/ML VIAL 15 MG IV (14:49)
[2023-08-04] MEDS: LACTATED RINGERS 1000ML 1,000 ML 999 ML IV (14:49)
[2023-08-04 14:50] LABS: Lipase 93 U/L (23-300)
[2023-08-04 15:18] LABS: Microscopic, Urine URINE MICROSCOPIC (MICROSCOPIC)
--- NOTE | 2023-08-04 15:18 | PC.NURSE ---
Pt ambulatory to bathroom and back to bed. Urine collected. Call light within reach.
[2023-08-04 15:22] LABS: Thyroid Stimulating Hormone 0.98 uIU/mL (0.465-4.68)
[2023-08-04 15:26] LABS: Appearance,Urine CLEAR (Clear); Bilirubin,Urine Negative (Negative); Blood, Urine Negative (Negative); Color,Urine YELLOW (Yellow); Glucose,Urine (UA) Negative (Negative); Ketones,Urine Negative (Negative); Leukocyte Esterase,Urine Negative (Negative); Nitrate,Urine Negative (Negative); Protein,Urine Negative (Negative); Urobilinogen,Urine 0.2 EU/dl (0.2)
[2023-08-04 15:46] LABS: RBC,Urine Occasional #/hpf (0-3); Squamous Epithelial Cell,Urine Occasional #/hpf (0-5)
--- NOTE | 2023-08-04 15:53 | PC.NURSE ---
Abdiel LLOYD at bs to update pt on results and POC
== END 2023-08-04 16:09 | disposition home or self-care (01) ==
PROVIDERS: Physician Assistant; Emergency Provider Student in an Organized Health Care Education/Training Program
DX: R07.9 Chest pain, unspecified (principal); R42 Dizziness and giddiness; F17.210 Nicotine dependence, cigarettes, uncomplicated; I10 Essential (primary) hypertension; R10.812 Left upper quadrant abdominal tenderness
CPT/HCPCS: 71045; 80053; 81001; 83690; 84443; 84484; 85025; 93005; 96361; 96374; 96375; 99284; J0131; J1885; J7120

== ENCOUNTER 2023-08-25 07:06 | Outpatient (CLI) | payer OTHER, SELFPAY ==
--- OUTSIDE RECORDS SUMMARY | 2023-08-25 07:08 | XMS_ITS | Continuity of Care Document ---
Author Name Unknown Address [address] [place] [address] [id number] Organization [facility] Phone Care Team Providers Care Office Machine Embossograph Operator Name Role Phone PAWEL ARAUJO Primary Attending [phone] PAWEL ARAUJO Admitting PAWEL ARAUJO Unavailable DECLINED, PCP Primary Care Unavailable ALLERGIES AND ADVERSE REACTIONS ALLERGIES AND ADVERSE REACTIONS Code System Allergy Substance Adverse Reaction Date Reaction (Severity) Comment Status Reported By Updated By Peanut (Free Text Allergy) Adverse reaction to substance Not Specified active [id number] on October 16, 2021 4:59:58 PM [facility] MEDICATIONS HOME MEDICATIONS Status RXNORM NDC Medication Dose Route Frequency Dates Comments Reported By Updated By Drug Treatment Unknown DISCHARGE MEDICATIONS Status RXNORM NDC Medication Dose Route Frequency Dates Comments Physician Updated By No Discharge Medication Info rmation Available INPATIENT MEDICATIONS Status RXNORM NDC Medication Dose Route Frequency Rat e Quantity Dates Comments Physician Updated By No Inpatient Medication Info rmation Available SOCIAL HISTORY SOCIAL HISTORY SNOMED-CT Social History Element Description Effective Dates Offered Cessation Comment UpdatedBy [id number] Smoking Status Unknown If Ever Smoked SOCIAL HISTORY - Gender Sex: Male SOCIAL HISTORY - Status : status i nformation is not available Intention in Next Year: intention information is not available SOCIAL HISTORY - Sexual Behavior Sexual Orientation Gender Identity SNOMED-CT Description SNO MED -CT Description Activity Level No of Partners Partner Type UpdatedBy Information is not available HEALTH CONCERNS Problems Concern Status Health Concern problem infor mation not available. Smoking Status Status Years Used Consumed packs p er day Health Concern smoking histo ry information not available. Family History Concern Status Health Concern family histor y information not available. ENCOUNTERS ENCOUNTER INFORMATION Reason for Visit R06.83 Admission August 19, 2023 3:31:[address] [id number] Discharge August 20, 2023 3:31:00 AM UTC DIS CHARGED TO HOME OR SELF CARE ENCOUNTER DIAGNOSES Notes information is not pura ilable. Code System Diagnosis Onset Date Diagnosis information is not available. ABSTRACT DIAGNOSES Code System Diagnosis Updated By R06.83 ICD10 SNORING [id number] on August 16, 2023 6:37:37 PM [facility] CARE TEAM Care Office Machine Embossograph Operator Role PAWEL ARAUJO Primary Attending PAWEL ARAUJO Admitting PAWEL ARAUJO Referring PCP DECLINED Primary Care CARE TEAM CARE podiatric assistant Role on Team Status Start Date End Date Update d By DECLINED PCP PCP normal August 16, 2023 6:37:37 PM [place] August 20, 2023 3:31:00 AM [place] [id number] on August 16, 2023 6:37:37 PM [place] GAYLE ARMAS MD Referring normal August 15 6:37:37 PM UTC August 20, 2023 3:31:00 AM [place] [id number] on August 16, 2023 6:37:37 PM [place] GAYLE ARMAS MD Attending normal August 15 6:37:37 PM [place] August 20, 2023 3:31:00 AM [place] [id number] on August 16, 2023 6:37:37 PM [place] GAYLE ARMAS MD Admitting normal August 15 6:37:37 PM UTC August 20, 2023 3:31:00 AM [place] [id number] on August 16, 2023 6:37:37 PM NDC
--- OUTSIDE RECORDS SUMMARY | 2023-08-25 07:08 | XMS_ITS | Continuity of Care Document ---
Author Name Unknown Address [address] [place] [id number] Organization [facility] Phone Care Team Providers Care Flight Readiness Technician Name Role Phone PAWEL ARAUJO Primary Attending PAWEL ARAUJO Admitting PAWEL ARAUJO Unavailable DECLINED, PCP Primary Care Unavailable ALLERGIES AND ADVERSE REACTIONS ALLERGIES AND ADVERSE REACTIONS Code System Allergy Substance Adverse Reaction Date Reaction (Severity) Comment Status Reported By Updated By Peanut (Free Text Allergy) Adverse reaction to substance Not Specified active [id number] on October 16, 2021 4:59:58 PM [facility] MEDICATIONS HOME MEDICATIONS Status RXNORM NDC Medication [...] Description Effective Dates Offered Cessation Comment UpdatedBy [id number] Smoking Status Unknown If Ever Smoked SOCIAL [...] R06.83 Admission August 19, 2023 3:31:[address] [id number] Discharge August 20, 2023 3:31:00 AM UTC DIS CHARGED TO HOME OR SELF CARE ENCOUNTER DIAGNOSES Notes information is not pura ilable. Code System Diagnosis Onset Date Diagnosis information is not available. 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
[2023-08-25 10:30] LABS: Alanine Aminotransferase 41 U/L (12-78); Albumin Level 3.9 g/dl (3.5-5.0); Alkaline Phosphatase 90 U/L (38-126); Anion Gap 10.9 mEq/L (5-15); Aspartate Amino Transferase 35 U/L (17-59); Bilirubin,Indirect 0.5 mg/dL (0.0-0.9); Bilirubin,Total 0.5 mg/dl (0.2-1.3); Bilirubin,Unconjugated 0.5 mg/dL (0.0-1.1); Blood Urea Nitrogen 15 mg/dl (9-20); Calcium 9.2 mg/dl (8.4-10.2); Carbon Dioxide 30 mmol/L (22.0-30.0); Chloride 101 mmol/L (98-107); Chol/HDL Ratio 9.2 (1-3.5); Cholesterol 267 mg/dl (140-200); Estimated Glomerular Filt Rate 106 ml/min (>60); GFR (African American) 128 ML/MIN (>60); Glucose 104 mg/dl (74-100); HDL Cholesterol 29 mg/dl (40-60); Potassium 3.9 mmoL/L (3.5-5.1); Sodium 138 mmol/L (136-145); Total Protein,Serum 6.5 g/dl (6.3-8.2)
[2023-08-25 10:42] LABS: Direct LDL Cholesterol 135.37 mg/dL (100-129)
[2023-08-25 10:46] LABS: Triglycerides 425 mg/dl (30-150)
== END 2023-08-25 23:59 | disposition home or self-care (01) ==
LOC: LAB 07:07
PROVIDERS: PCP Internal Medicine Adolescent Medicine; Visit Provider Physician Assistant
DX: R07.9 Chest pain, unspecified (principal); R42 Dizziness and giddiness; R94.31 Abnormal electrocardiogram [ECG] [EKG]; Z82.49 Family history of ischemic heart disease and other diseases of the circulatory system
CPT/HCPCS: 36415; 80048; 80061; 80076

== ENCOUNTER 2023-08-31 12:12 | Outpatient (CLI) | payer OTHER, SELFPAY ==
[2023-08-30 13:14] VITALS: BMI 36.6
[2023-08-31] VITALS (7 sets, daily range): BP systolic 104–126; BP diastolic 59–74; PULSE 61–92; RESP 16–18; TEMP 36.6; O2SAT 93–98; BMI 36.6
--- NOTE | 2023-08-31 12:13 | CT_ITS ---
APPROVED REPORT Residential Case Manager: CLINICAL INDICATION Chest Pain TECHNIQUE Image Acquisition: A 128 slice MDCT scanner (2C2Pa View) was used for data acquisition. A noncontrast coronary calcium scan was performed. A CT attenuation threshold of 130 Hounsfield units (HU) was used for the detection of calcium in contiguous voxels of 1 sq mm in area to be counted as individual lesions. Bolus tracking in the ascending aorta with a threshold of 180 HU was performed. Immediately afterwards, ECG synchronized cardiac CT was then performed from the cardiac base to apex using retrospective gating with ECG tube current modulation. A total of 85 mL of Isovue 370 mg/mL contrast medium was administered at 5 mL/sec followed by a saline flush using a biphasic injection protocol. A tube voltage of 120 KVp was used. The patient received the following medications prior to the cardiac CT. 75 mg of oral metoprolol 10 mg of intravenous metoprolol 15 mg of oral ivabradine The average heart rate at the time of acquisition was 65 bpm and regular. Image Reconstruction Transaxial images were reconstructed at 0.67 mm slide thickness. Data was reviewed interactively on an advanced workstation capable of 2 and 3-dimensional displays in all conventional reconstruction formats, including multiplanar reformations, maximum intensity projections, curved multiplanar reformations, and volume rendered reconstructions. When applicable, selected routine images describing the relevant coronary anatomy and pathology were saved and sent to PACS. Complications None Technical Quality Overall image quality was good. Coronary artery opacification was adequate. Total DLP (Dose-Length Product) is 2067.9 mGy-cm. The reported value represents the total of one or more individual components during the CT acquisition of this date and at this time, and as such, the same value may appear in more than one CT report depending on the interpreting/reporting physicians. COMPARISON None FINDINGS CT Coronary Calcium Scoring LMA (Left Main Artery) = 5 LAD (Left Anterior Descending) = 236 LCX (Left Coronary Circumflex) = 46 RCA (Right Coronary Artery) = 70 Total Calcium Score = 358 using the AJ-130 method. The observed calcium score of 358 is at 99th percentile for subjects of the same age, sex, and race/ethnicity. The interpretation of the calcium heart score is based on the following continuum*: 0 = no calcified plaque detected (risk of coronary artery disease is very low ??? less than 5%) 1-10 = calcium detected in extremely minimal levels (risk of coronary diseases is still low ??? less than 10%) 11-100 = mild levels of plaque detected with certainty (mild or minimal narrowing of heart arteries is likely) 101-400 = definite,at least moderate levels of plaque detected (relatively high risk of a heart attack within 3-5 years) >401-999 = extensive levels of plaque detected (high risk of heart attack, high levels of vascular disease are present, high likelihood of at least one significant coronary narrowing) *The calcium heart score quantifies the burden of coronary calcification/plaque in the coronary arteries. The calcium heart score is not able to evaluate the presence or burden of non-calcified (i.e. soft) plaque. There is no identifiable calcification in the aortic valve, mitral annulus or mitral valve, pericardium, or myocardium. Coronary CT Angiography The coronary arterial system is right dominant. Quantitative Stenosis Grading: Left Main (LM): The left main originates normally from the left sinus of Valsalva. The LM bifurcates into the left anterior descending artery and left circumflex artery. There is calcified plaque in the LM, with normal luminal stenosis. Left Anterior Descending (LAD) and Diagonal Branches: The LAD gives off 3 diagonal branch(es). There is mixed calcified/noncalcified plaque in the proximal and mid LAD segments, with up to 70-90% luminal stenosis. There is no evidence of LAD-myocardial bridge. Left Circumflex (LCX) and Obtuse Marginals (OM): The LCX gives off 1 Obtuse Marginal (OM) branch(es). There is mixed calcified/noncalcified plaque in the proximal LCx, with 30-50% luminal stenosis. Right Coronary Artery (RCA): The RCA originates normally from the right sinus of Valsalva. The RCA gives off a posterior descending artery (PDA) and posterolateral (PL) branches. There is mixed calcified/noncalcified plaque in the proximal and mid RCA segments, with up to 70-90% luminal stenosis. Non-Coronary Cardiac Findings: Analysis of the left ventricular (LV) structure and function was performed after 3-D reconstruction of the LV from axial images, with user-corrected automatic contouring for assessment of LV volumes and user-defined reconstruction from oblique planes for measurement of 3-D cardiac structure and function. -The left ventricle systolic function is normal. -There is no left atrial appendage filling defect. Two right pulmonary veins and two left pulmonary veins drain normally into the left atrium. -No pericardial thickening or calcification. -Central and branch pulmonary arteries in the [id number] are unremarkable. -Thoracic aorta within the visualized thoracic aortic-branches in the [id number] is unremarkable. Extracardiac Structures No significant extra-cardiac findings. Note, however, that this study is focused on the cardiac findings. IMPRESSION -Presence of coronary calcification with an Agatston score = 358 using the AJ-130 method. -The observed calcium score of 358 is at 99th percentile for subjects of the same age, sex, and race/ethnicity. -Multivessel atherosclerotic coronary disease with significant flow-limiting atherosclerosis of proximal and mid LAD, as well as proximal RCA segments. -CAD-RADS 4B. Management recommendations per ACC/AHA guidelines*, as clinically appropriate. *Recommendations: CAD RADS 0: Reassurance. Consider non-atherosclerotic causes of chest pain. CAD RADS 1: Consider non-atherosclerotic causes of chest pain. Consider preventive therapy and risk factor modification. CAD RADS 2: Consider non-atherosclerotic causes of chest pain. Consider preventive therapy and risk factor modification, particularly for patients with nonobstructive plaque in multiple segments. CAD RADS 3: Consider further functional testing. Consider symptom-guided anti-ischemic and preventive pharmacotherapy as well as risk factor modification per published guideline statements. CAD RADS 4A: Consider further functional testing or invasive coronary angiography with revascularization per published guideline statements. Consider symptom-guided anti-ischemic and preventive pharmacotherapy as well as risk factor modification per published guideline statements. CAD RADS 4B: Invasive coronary angiography recommended with revascularization per published guideline statements. Consider symptom-guided anti-ischemic and preventive pharmacotherapy as well as risk factor modification per published guideline statements. CAD RADS 5: Consider invasive angiography and/or viability assessment with revascularization per published guideline statements. Consider symptom-guided anti-ischemic and preventive pharmacotherapy as well as risk factor modification per published guideline statements. CRITICAL RESULT None COMMUNICATION Per this written report The coronary and cardiac findings of this CCTA were reviewed, reported, and signed by Jose Cruz Cain MD (Mine Manager) Conclusion Electronically signed by : Mary Cain MD 09/02/2023 14:17:44
[2023-08-31] MEDS: METOPROLOL TARTRATE 50MG TABLET PO (12:30)
[2023-08-31] MEDS: IVABRADINE HCL 7.5MG TABLET PO (12:30)
[2023-08-31] MEDS: NITROGLYCERIN 0.4MG SL TABLET SL (13:20)
[2023-08-31] MEDS: METOPROLOL TARTRATE 5MG/5ML VIAL 5 MG IV ×2 (13:21→13:26)
[2023-08-31] MEDS: 0.9 % SODIUM CHLORIDE 50 ML VIAL IV (13:50)
[2023-08-31] MEDS: SODIUM CHLORIDE 0.9% 10ML SYR (RAD ONLY) 10 ML IV (13:50)
[2023-08-31] MEDS: IOPAMIDOL-370 (76%);100ML BOTTLE 85 ML IV (13:51)
== END 2023-08-31 13:45 | disposition home or self-care (01) ==
PROVIDERS: PCP Physician Assistant; Visit Provider Physician Assistant
DX: R07.9 Chest pain, unspecified (principal); R42 Dizziness and giddiness; R94.31 Abnormal electrocardiogram [ECG] [EKG]; Z82.49 Family history of ischemic heart disease and other diseases of the circulatory system
CPT/HCPCS: 75574; Q9967

== ENCOUNTER → 2023-09-24 08:14 | Day surgery (SDC) | payer OTHER, SELFPAY ==
[2023-09-24] VITALS (12 sets, daily range): BP systolic 109–167; BP diastolic 51–98; PULSE 61–86; RESP 16–20; TEMP 36.6–36.8; O2SAT 94–99
--- NOTE | 2023-09-24 07:23 | IR_ITS ---
APPROVED REPORT Patient Location: Outpatient PROCEDURES Left heart catheterization Left ventriculogram Selective coronary angiogram Drug-eluting stent deployment to the proximal circumflex artery Intravascular ultrasound to the LAD INDICATION Coronary artery disease, Abnormal CCTA, Angina pectoris, Angiographic ambiguity throughout the LAD Informed consent was obtained prior to the procedure. COMPLICATIONS NONE Estimated Blood Loss: LESS THAN 10 ML TECHNIQUE One percent lidocaine used to anesthetize the right anterior aspect of the wrist. The right radial artery was accessed via the Seldinger technique. A 6 German sheath was placed in the right radial artery. 2.5 mg of Verapamil, 800 mcg of nitroglycerin, 1mg Lidocaine and 5000 U Heparin were given through the arterial sheath. The papa catheter was also used to perform left heart catheterization, left ventriculogram and selective coronary angiogram. At the end of the diagnostic angiogram therapeutic Was administered giving a therapeutic ACT and the guide catheter was placed in the left main artery followed by Choice PT after support wire down the LAD. A 4 mm x 15 mm [place] frontier stent was deployed at 20 diaan reducing the stenosis to 40%. A 5 mm x 8 mm noncompliant balloon was deployed at 22 and then 24 diana in order to post dilate the calcified proximal LAD stenosis. Angiographically ambiguous disease was present throughout the LAD therefore attempts to perform FFR were undertaken however the FFR machine would not to function properly and would not turn on leaving us without an ability to perform functional study. Because of this intravascular ultrasound probe was advanced which did demonstrate moderate atheromatous plaque throughout the proximal and mid LAD however the MLA was greater then 4 mm??? throughout the LAD. After achieving excellent angiograph results on the circumflex artery and post dilating as well as performing intravascular ultrasound the apparatus was removed from the left main artery and the guide catheter was placed in the right coronary artery followed by Choice PT after support wire placed distally in the right coronary artery. Intravascular ultrasound probe was advanced which demonstrated moderate atheromatous plaque with an MLA greater than 6 mm??? throughout. At this point the apparatus was removed the sheath was removed and hemostasis was achieved using TR banding patient was transferred to the postop putting in stable condition ANGIOGRAPHIC RESULTS The left main artery Normal The left anterior descending artery Has proximal 40% and mid vessel 40% stenosis with moderate diffuse atheromatous plaque The circumflex artery Large and dominant and has a proximal calcified concentric 70% stenosis. First obtuse marginal artery has proximal 30% stenosis and is a large-caliber vessel. The right coronary artery There is a dominant vessel and has mid vessel and distal 40 to 50% calcified stenosis The NELSON ventriculogram reveals Preserved 60% The left ventricular end-diastolic pressure Elevated at 20 to 25 mmHg IMPRESSION Stents of coronary disease as described above with severe disease in the proximal circumflex artery which underwent drug-eluting stenting Impressive calcification in the proximal circumflex artery which responded well to percutaneous revascularization Moderate and heavy plaque throughout the proximal and mid LAD as well as mid and distal dominant right coronary artery as described above Preserved ejection fraction Elevated LVEDP PLAN 1. Effient and aspirin 2. LDL less than 55 to be achieved with high intensity statin 3. Aggressive risk factor modification 4. Recommend sleep study 5. Absolute and immediate avoidance of all tobacco products 6. Cardiac rehabilitation 7. Recommend exercise and weight loss Electronically signed by : Cristopher Whipple MD 09/24/2023 16:34:57
[2023-09-24 08:46] LABS: Basophils # 0.1 K/mm3 (0-0.2); Eosinophils # 0.3 K/mm3 (0.0-0.4); Eosinophils % 3.6 % (0.1-12.0); Hematocrit 50.1 % (42.0-52.0); Hemoglobin 16.6 g/dL (14.1-18.0); Lymphocytes # 1.6 K/mm3 (0.7-4.5); Lymphocytes % 20.9 % (10-50); Mean Corpuscular HGB Conc 33.1 g/dL (31.8-35.4); Mean Corpuscular Hemoglobin 31.2 pg (27.0-31.2); Mean Corpuscular Volume 94.5 fl (80-94); Mean Platelet Volume 7.8 fl (7.4-10.4); Monocytes # 0.4 K/mm3 (0.1-1.0); Monocytes % 4.8 % (1.7-9.3); Neutrophils # 5.2 K/mm3 (1.8-7.8); Neutrophils % 69.6 % (37.0-80.0); Platelet Count 249 K/mm3 (142-424); Red Cell Distribution Width 13.9 % (11.5-17.5); White Blood Count 7.4 K/mm3 (4.8-10.8)
[2023-09-24 08:50] LABS: Chloride 104 mmol/L (98-107); Potassium 3.8 mmoL/L (3.5-5.1); Sodium 138 mmol/L (136-145)
[2023-09-24 08:53] LABS: Anion Gap 7.8 mEq/L (5-15); Blood Urea Nitrogen 14 mg/dl (9-20); Calcium 9.2 mg/dl (8.4-10.2); Carbon Dioxide 30 mmol/L (22.0-30.0); Creatinine Clearance Estimated 186 mL/min (50-200); Estimated Glomerular Filt Rate 92 ml/min (>60); GFR (African American) 111 ML/MIN (>60); Glucose 112 mg/dl (74-100)
[2023-09-24] MEDS: HEPARIN 1,000 UNITS/ML 10ML VIAL (CATH LAB) 10000 UNIT IV (09:38)
[2023-09-24] MEDS: FENTANYL 100MCG/2ML VIAL 50 MCG IV (09:39)
[2023-09-24] MEDS: LIDOCAINE 1% 10ML MDV 20 ML IJ (09:39)
[2023-09-24] MEDS: VERAPAMIL 2.5MG/ML 2ML VIAL 2.5 MG IV (09:39)
[2023-09-24] MEDS: diphenhydrAMINE 50MG/ML VIAL 50 MG IV (09:39)
[2023-09-24] MEDS: HEPARIN 1,000 UNITS/500ML NS (CATH LAB) 3000 UNIT IV (09:40)
[2023-09-24] MEDS: MIDAZOLAM HCL 1MG/1ML 5ML VIAL 1 MG IV (09:40)
[2023-09-24] MEDS: NITROGLYCERIN 800MCG/8ML SYR (CATH LAB) 800 MCG IA (09:40)
[2023-09-24] MEDS: 0.9 % SODIUM CHLORIDE 500 ML 25 ML IV (09:40)
[2023-09-24] MEDS: PRASUGREL 10MG TAB 60 MG PO (10:40)
--- NOTE | 2023-09-24 10:53 | SUR.PHASEII ---
REPORT TO DIMPLE HENRIQUEZ, PATIENT TAKEN TO POST OP FOR RECOVERY
[2023-09-24] MEDS: IOPAMIDOL-370 (76%);100ML BOTTLE 110 ML IV (12:46)
[2023-09-24 16:27] LABS: CATHL Activated Clotting Time 343 SEC (74-125)
== END | disposition home or self-care (01) ==
PROVIDERS: PCP Internal Medicine Adolescent Medicine; Visit Provider Internal Medicine
DX: I25.118 Atherosclerotic heart disease of native coronary artery with other forms of angina pectoris (principal); Z82.49 Family history of ischemic heart disease and other diseases of the circulatory system; R94.31 Abnormal electrocardiogram [ECG] [EKG]; R93.1 Abnormal findings on diagnostic imaging of heart and coronary circulation; F17.210 Nicotine dependence, cigarettes, uncomplicated; Z79.899 Other long term (current) drug therapy
CPT/HCPCS: 80048; 85025; 85347; 92928; 92978; 93458; 99152; 99153; C1725; C1769; C1874; C9600; J1200; J1644; J2250; J3010; Q9967

== ENCOUNTER 2023-09-29 15:07 | Outpatient (CLI) | payer OTHER, SELFPAY ==
[2023-09-29 15:49] LABS: Basophils % 0.4 % (0.1-2.0); Eosinophils # 0.2 K/mm3 (0.0-0.4); Eosinophils % 3.1 % (0.1-12.0); Hematocrit 45.2 % (42.0-52.0); Hemoglobin 15.1 g/dL (14.1-18.0); Lymphocytes # 1.7 K/mm3 (0.7-4.5); Lymphocytes % 23.6 % (10-50); Mean Corpuscular HGB Conc 33.4 g/dL (31.8-35.4); Mean Corpuscular Hemoglobin 31.2 pg (27.0-31.2); Mean Corpuscular Volume 93.4 fl (80-94); Mean Platelet Volume 8.1 fl (7.4-10.4); Monocytes # 0.2 K/mm3 (0.1-1.0); Monocytes % 3.1 % (1.7-9.3); Neutrophils # 5.1 K/mm3 (1.8-7.8); Neutrophils % 69.8 % (37.0-80.0); Platelet Count 272 K/mm3 (142-424); Red Blood Count 4.84 M/mm3 (4.60-6.20); Red Cell Distribution Width 13.9 % (11.5-17.5); White Blood Count 7.3 K/mm3 (4.8-10.8)
[2023-09-29 16:03] LABS: Chloride 102 mmol/L (98-107)
[2023-09-29 16:04] LABS: Potassium 4.5 mmoL/L (3.5-5.1); Sodium 137 mmol/L (136-145)
[2023-09-29 16:06] LABS: Blood Urea Nitrogen 15 mg/dl (9-20); Estimated Glomerular Filt Rate 92 ml/min (>60); GFR (African American) 111 ML/MIN (>60)
[2023-09-29 16:07] LABS: Anion Gap 9.5 mEq/L (5-15); Carbon Dioxide 30 mmol/L (22.0-30.0); Glucose 108 mg/dl (74-100)
== END 2023-09-29 23:59 | disposition home or self-care (01) ==
LOC: LAB 15:08
PROVIDERS: PCP Internal Medicine Adolescent Medicine; Visit Provider Internal Medicine
DX: I25.10 Atherosclerotic heart disease of native coronary artery without angina pectoris (principal)
CPT/HCPCS: 36415; 80048; 85025

== ENCOUNTER 2023-10-27 07:51 | Outpatient (CLI) | payer OTHER, SELFPAY ==
--- NOTE | 2023-10-27 07:57 | CA_ITS ---
APPROVED REPORT EXAM: Comprehensive 2D, Doppler, and color-flow Echocardiogram Auto Striper: Suellen Escobar RVT Ht: 6 ft 0 in Wt: 278lbs BSA: 2.45 BP: 121/74 mmHg Indications: CP,ABN EKG,CAD,SMOKER 2D Dimensions IVSd 1.05 cm M: 0.6-1.2 LVEF (Visual) 51.60 % PWd 0.98 cm M: 0.6 - 1.2 LA Volume 43.40 mL LVDd 5.09 cm M: 4.2 - 5.9 LA Volume Index 17.71 mL/m2 (M/F) 16-34 LVDs 3.74 cm M: 2.5 - 4.0 M-Mode Dimensions LA Diam 3.79 cm (1.9-4.0) TAPSE 2.69 (<1.7) LV Diastology E Decel Time 150 (160-240 msec) E/A Ratio 0.7 Aortic Valve ERIKA Index 1.20 cm2/m2 AoV Peak Yahir. 158.0 (50-130 cm/s) AO Peak GR. 10.00 mmHg AO Mean GR. 5.40 (<5 mmHg) AO VTI 35.3 (18-25 cm) ERIKA (VTI) 3.00 (2.5-4.5 cm2) Mitral Valve MV E Max Yahir. 70.0 (40-130 cm/s) MV A Velocity 95.0 (40-130 cm/s) E/A Ratio 0.74 MV PHT 44.0 ms Pulmonary Valve PV Peak Velocity 63.0 (50-150 cm/s) Tricuspid Valve TR P. Velocity 228.00 cm/s RAP Estimate 10.00 mmHg RVSP 30.90 mmHg Left Ventricle The left ventricle is normal size. The left ventricular systolic function is normal. The left ventricular ejection fraction is within the normal range. There is increased LV wall thickness. There is normal LV segmental wall motion. The left ventricular diastolic function is normal. LVEF is 55%. Right Ventricle The right ventricle is normal size. The right ventricular systolic function is normal. Atria The left atrium size is normal. The right atrium size is normal. There is no Doppler evidence of interatrial shunt. Aortic Valve The aortic valve opens well. There is no aortic valvular stenosis. No aortic regurgitation is present. Mitral Valve The mitral valve is normal in structure. No evidence of mitral valve stenosis. Trace mitral regurgitation noted. Tricuspid Valve Tricuspid valve is grossly normal in structure and function. The tricuspid valve leaflets are thin and pliable. There is insufficient TR jet to estimate RVSP. Pulmonic Valve The pulmonary valve is normal in structure. Trace pulmonic regurgitation. Great Vessels The aortic root is not well-visualized. The ascending aorta is not well-visualized. IVC is normal in size and collapses >50% with inspiration. Pericardium There is no pericardial effusion. Other Information Study Quality: Technically Difficult Conclusion Technically difficult study due to poor acoustic windows. Normal biventricular systolic function. No significant valvular stenosis or regurgitation. Electronically signed by : Mary Cain MD 10/29/2023 23:56:23
== END 2023-10-27 23:59 | disposition home or self-care (01) ==
LOC: RT 07:52
PROVIDERS: PCP Internal Medicine Adolescent Medicine; Visit Provider Physician Assistant
DX: R07.9 Chest pain, unspecified (principal); R42 Dizziness and giddiness; R94.31 Abnormal electrocardiogram [ECG] [EKG]; Z82.49 Family history of ischemic heart disease and other diseases of the circulatory system
CPT/HCPCS: 93306

== ENCOUNTER 2024-01-18 10:03 | Emergency (ER) | payer OTHER, SELFPAY ==
[2024-01-18 10:15] VITALS: BP 128/76; PULSE 65; RESP 14; TEMP 36.6; O2SAT 97; BMI 35.5
[2024-01-18 10:16] LABS: Coronavirus 19, PCR Not Detected (NotDetected); Influenza A, PCR Not Detected (NotDetected); Influenza B, PCR Not Detected (NotDetected)
--- NOTE | 2024-01-18 10:28 | XR_ITS ---
FINAL REPORT CLINICAL HISTORY: Acute cough, ronchi L>R COMPARISON: 05/24/2017 FINDINGS: Two views of the chest were obtained. The heart size and pulmonary vascularity are within normal limits. The mediastinum is normal. There is mild bronchial wall thickening consistent with bronchitis. There is no pneumothorax. The bony thorax is intact. IMPRESSION: Mild bronchial wall thickening is consistent with bronchitis. Reviewed, Interpreted and Dictated by Jayce Rod III, MD Transcribed by Jessi Bright Authenticated and [facility]
--- NOTE | 2024-01-18 10:29 | HMH.EDGENADL ---
Discharge Plan Disposition Patient Disposition: Home, Self-Care Condition: Good Prescriptions Prescriptions: New amoxicillin-pot clavulanate 875-125 mg tablet 1 tab PO BID Qty: 20 0RF fluticasone propionate [Flonase Allergy Relief] 50 mcg/actuation spray,suspension 1 spray intranasal BID Qty: 16 0RF Rx Instructions: administer into each nostril azithromycin 500 mg tablet 500 mg PO DAILY 3 Days Qty: 3 0RF Rx Instructions: start on day 2 of therapy prednisone 20 mg tablet 40 mg PO DAILY 4 Days Qty: 8 0RF Rx Instructions: Please start taking this on 01/19/2024. albuterol sulfate 90 mcg/actuation aero powdr breath act w/sensor 2 inh inhalation Q4H PRN (Reason: shortness of breath or wheezing) Qty: 1 0RF ondansetron 4 mg tablet,disintegrating 4 mg PO Q8H PRN (Reason: nausea and vomiting) 4 Days Qty: 12 0RF No Action atorvastatin [Lipitor] 40 mg tablet 40 mg PO DAILY Qty: 30 5RF valsartan-hydrochlorothiazide 80-12.5 mg tablet 1 tab PO DAILY omeprazole 20 mg capsule,delayed release(DR/EC) 20 mg PO DAILY varenicline [Chantix Starting Month Box] 0.5 mg (11)- 1 mg (42) tablets,dose pack See Rx Instructions PO PER PKG DIR Qty: 53 0RF Rx Instructions: take as directed varenicline [Chantix Continuing Month Box] 1 mg tablet 1 mg PO BID 84 Days Qty: 168 0RF prasugrel [Effient] 10 mg Tablet 10 mg PO DAILY Qty: 90 4RF bisoprolol fumarate 10 mg Tablet 10 mg PO DAILY Qty: 30 3RF aspirin 81 mg Capsule 81 mg PO DAILY Referrals Follow up/Referrals: Andres Johnson MD [Primary Care Provider] - See instructions Activity Restrictions/Add. Instructions Additional Instructions/Restrictions: You were evaluated in the emergency department today. 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 Take Tylenol and ibuprofen every 4-6 hours as needed for pain/fever. Return to the emergency department for new or worsening symptoms. Follow-up closely with your primary care provider. Clinical Impressions Clinical Impression: Pneumonia, Wheezing Stand Alone Forms Stand Alone Forms: Work/School Release Instructions Patient Instructions: DI for Pneumonia -- Adult Print Language Print Language: Luxembourgish Discharge ED Provider: Bren Stover General Adult HPI General Chief complaint: Upper Respiratory Infection Stated complaint: v/d head congestion Time Seen by Provider: 01/18/24 10:23 History of Present Illness HPI narrative: This patient is a 43-year-old male with a history of hypertension, CAD status post stenting, obesity, and tobacco dependence presenting to the emergency department for evaluation with concern for sore throat, cough, congestion, nausea, and vomiting. Patient states that has been sick since 01/13/2024. He notes he has been taking [id number] medications at home but nothing seems to help. He notes he has not been able to keep much down. No chest pain, abdominal pain, or other concerns. Related Data Home Medications ?Medication ?Instructions ?Recorded ?Confirmed omeprazole 20 mg capsule,delayed 20 mg PO DAILY 08/18/23 01/11/24 release valsartan 80 1 tab PO DAILY 08/18/23 01/11/24 mg-hydrochlorothiazide 12.5 mg tablet aspirin 81 mg capsule 81 mg PO DAILY 08/31/23 01/11/24 Previous Rx's ?Medication ?Instructions ?Recorded atorvastatin 40 mg tablet (Lipitor) 40 mg PO DAILY #30 tabs 09/01/23 bisoprolol fumarate 10 mg tablet 10 mg PO DAILY #30 tabs 09/24/23 prasugrel 10 mg tablet (Effient) 10 mg PO DAILY #90 tabs 09/24/23 varenicline 0.5 mg (11)-1 mg (42) See Rx Instructions PO PER PKG DIR 01/11/24 tablets in a dose pack (Chantix #53 tabs Starting Month Box) varenicline 1 mg tablet (Chantix 1 mg PO BID 12 weeks #168 tabs 01/11/24 Continuing Month Box) albuterol sulfate 90 mcg/actuation 2 inh inhalation Q4H PRN shortness 01/18/24 breath activated powder of breath or wheezing #1 ea inhaler,sensor amoxicillin 875 mg-potassium 1 tab PO BID #20 tabs 01/18/24 clavulanate 125 mg tablet azithromycin 500 mg tablet 500 mg PO DAILY 3 days #3 tabs 01/18/24 fluticasone propionate 50 1 spray intranasal BID #16 grams 01/18/24 mcg/actuation nasal spray,suspension (Flonase Allergy Relief) ondansetron 4 mg disintegrating 4 mg PO Q8H PRN nausea and 01/18/24 tablet vomiting 4 days #12 tabs prednisone 20 mg tablet 40 mg (2 x 20 mg) PO DAILY 4 days 01/18/24 #8 tabs Allergies Allergy/AdvReac Type Severity Reaction Status Date / Time peanut Allergy Difficulty Verified 01/18/24 10:32 Breathing PFSH PFS Disclaimer: The information contained in this section may have been updated after the patient was seen, as this information can be updated by other users. Medical History Tobacco use Family history of premature coronary heart disease Coronary artery disease Hypertension Family history of ischemic heart disease before age 50 Abnormal electrocardiogram [ECG] [EKG] Surgical History History of coronary artery stent placement History of cardiac cath Social History Smoking Status: Current every day smoker tobacco type: cigarettes packs per day: 1 alcohol intake: never counseling provided: none substance use type: denies use current occupational status: employed Travel in the last 8 weeks: None household members: spouse housing: house Other Medical History Have you received the Flu Vaccine for this season: No Have you received the Pneumonia Vaccine: No ROS Obtained: Yes All systems reviewed & no additional complaints except as documented Physical Exam General General appearance: alert, in no apparent distress and obese Comment: Sitting upright in no acute distress with normal respiratory effort Head Head exam: atraumatic and normocephalic Eye Eye exam: Present normal appearance, PERRL and EOMI ENT ENT exam: Present normal exam, normal oropharynx, mucous membranes moist and normal external ear exam Neck Neck exam: Present normal inspection, full ROM and trachea midline; Absent tenderness Chest Chest inspection: Present normal inspection and symmetric chest wall rise; Absent tenderness Respiratory Respiratory exam: Present wheezes and other (Wheezes and rhonchi, left greater than right, especially about the bases); Absent respiratory distress, stridor or accessory muscle use Cardiovascular Cardiovascular exam: Present regular rate and normal rhythm Abdominal Exam Abdominal exam: Present soft; Absent distention, tenderness or guarding Extremities Exam Extremities exam: Present normal inspection, full ROM and normal capillary refill; Absent tenderness or edema Back Exam Back exam: Present normal inspection and full ROM; Absent tenderness Neurological Exam Neurological exam: Present alert, oriented X3, CN II-XII intact and normal gait; Absent motor sensory deficit Psychiatric Psychiatric exam: Present normal affect and normal mood Skin Skin exam: Present warm and dry Medical Decision Making Medical Records Medical records reviewed: Yes I reviewed the patient's medical records. Screening: Per USPSTF and CDC recommendations, given the prevalence of disease in our region, it is our hospital?s policy to screen for HIV and viral Hepatitis for all patients aged 18 and over and those with ongoing risk factors. Clay Inquiry Pt receiving controlled substance: No Vital Signs: 01/18/24 10:15 01/18/24 11:01 01/18/24 11:30 Temperature 97.9 F Temperature Source Oral Pulse Rate 61 57 L Pulse Rate [Left] 65 Respiratory Rate 14 Blood Pressure 118/69 114/72 Blood Pressure [Right Arm] 128/76 Blood Pressure Mean [Right Arm] 93 Blood Pressure Source [Right Arm] Automatic Cuff Blood Pressure Position [Right Arm] Sitting 02 Sat by Pulse Oximetry 97 97 97 Oxygen Delivery Method Room Air 01/18/24 11:45 01/18/24 12:01 01/18/24 13:27 Temperature 98.3 F Temperature Source Pulse Rate 61 57 L 56 L Pulse Rate [Left] Respiratory Rate 16 Blood Pressure 138/84 115/73 Blood Pressure [Right Arm] Blood Pressure Mean [Right Arm] Blood Pressure Source [Right Arm] Blood Pressure Position [Right Arm] 02 Sat by Pulse Oximetry 93 L 92 L Oxygen Delivery Method Lab Data Lab results reviewed: Yes I reviewed the patient's lab results. Lab Results 01/18/24 10:11: SARS-CoV-2 (PCR) Not detected, Influenza A Untype (PCR) Not detected, Influenza Type B (PCR) Not detected 01/18/24 11:02: WBC 4.2 L, RBC 5.29, Hgb 16.5, Hct 47.8, MCV 90.4, MCH 31.2, MCHC 34.5, RDW 12.9, Plt Count 224, MPV 7.6, Neut % (Auto) 56.1, Lymph % (Auto) 27.6, [place] % (Auto) 8.1, Eos % (Auto) 7.3, Baso % (Auto) 0.9, Neut # (Auto) 2.4, Lymph # (Auto) 1.2, [place] # (Auto) 0.3, Eos # (Auto) 0.3, Baso # (Auto) 0.0, Sodium 137, Potassium 3.7, Chloride 104, Carbon Dioxide 27, Anion Gap 9.7, BUN 12, Creatinine 0.90, Estimated Creat Clear 178, Estimated GFR 92, Est GFR ( Amer) 111, Glucose 121 H, Calcium 9.1, Total Bilirubin 0.6, AST 41, ALT 38, Alkaline Phosphatase 123, Total Protein 6.9, Albumin 4.1, Globulin 2.8, Albumin/Globulin Ratio 1.5 01/18/24 11:02 01/18/24 11:02 Orders (Tests/Meds): ED MEDICATIONS Discontinued Medications Generic Name Dose Route Start Last Admin Trade Name Freq PRN Reason Stop Dose Admin Acetaminophen 1,000 mg 01/18/24 10:28 01/18/24 11:06 Acetaminophen 500mg Tab PO 01/18/24 10:29 1,000 mg ONCE ONE Administration Albuterol/Ipratropium 6 ml 01/18/24 10:28 01/18/24 11:06 Ipratropium/Albuterol 3 Ml Neb IH 01/18/24 10:29 6 ml ONCE ONE Administration Amoxicillin/Clavulanate Potassium 1 each 01/18/24 13:10 01/18/24 13:19 Amoxicillin/Clavulanate Potassium 875/125mg Tablet PO 01/18/24 13:11 1 each ONCE ONE Administration Azithromycin 500 mg 01/18/24 13:10 01/18/24 13:20 Azithromycin 250mg Tablet PO 01/18/24 13:11 500 mg ONCE ONE Administration Ketorolac Tromethamine 15 mg 01/18/24 10:28 01/18/24 11:07 Ketorolac 30mg/Ml Vial IV 01/18/24 10:29 15 mg ONCE ONE Administration Ondansetron HCl 4 mg 01/18/24 10:28 01/18/24 11:07 Ondansetron 4mg/2ml Vial IV 01/18/24 10:29 4 mg ONCE ONE Administration Prednisone 40 mg 01/18/24 13:10 01/18/24 13:20 Prednisone 20mg Tab PO 01/18/24 13:11 40 mg ONCE ONE Administration ORDERS Category Date Time Status CXR 2 view (NOT portable) [XR chest 2V] Stat Exams 01/18/24 10:28 Completed Complete Blood Count Auto Diff Stat Lab 01/18/24 11:02 Completed Comprehensive Metabolic Panel Stat Lab 01/18/24 11:02 Completed Rapid PCR Covid and Flu A/B Stat Lab 01/18/24 10:11 Completed ECG Data Tracing #1: I reviewed this ECG and interpreted as documented below: Sinus bradycardia with a ventricular rate of 56 bpm. Moderate intraventricular conduction delay. No acute ST changes concerning for ischemia. Normal axis ECG initial impression date: 01/18/24 ECG initial impression time: 10:56 Medical Decision Narrative: In summary, this patient is a 43-year-old male presenting to the Emergency Department for evaluation of sore throat, cough, congestion, nausea, and vomiting. Differential diagnoses considered include but are not limited to viral syndrome, pneumonia, asthma exacerbation, COPD exacerbation, respiratory failure, gastroenteritis, dehydration, DIVINA. Ruling out the most morbid conditions drove assessment. It should be noted patient's history includes hypertension, CAD status post stenting, obesity, and tobacco dependence which likely are not at goal therapy. This complicates all aspects of care by increasing patient's risk for morbidity. I reviewed patient's past medical records and noted previous evaluations by cardiology with most recent assessment 01/11/2024. On exam, the patient is sitting upright in no acute distress with normal work of breathing and normal vital signs on cardiac telemetry. He does have wheezing or rhonchi noted, left greater than right. Workup included CBC, CMP, two-view chest x-ray, EKG, viral swab. Patient was given oral Tylenol, IV Toradol, IV Zofran for symptomatic improvement. I independently interpreted x-ray prior to the radiologist read and noted concerns for possible developing perihilar consolidation. Please see their read for final interpretation. Labs were obtained that demonstrated very mild leukopenia but no significant leukocytosis, reassuring chemistry. On reassessment, patient had great improvement after administration of medications above. I gave him DuoNebs given adventitious lung sounds noted, and he had improvement in his respiratory status and symptoms. Given this, he was given oral prednisone as well as Augmentin and azithromycin to treat upper respiratory infection. He did then complained to me and bilateral ear pain and he has serous effusions but no otitis media. Will treat with Flonase. Exam is reassuring with no increased work of breathing and normal vitals on cardiac telemetry, so I feel he is appropriate for discharge home with prescriptions for prednisone, albuterol inhaler, Augmentin, azithromycin, Zofran have as needed for nausea and vomiting, and Flonase. Strict return precautions were given as well as instructions for close follow-up with primary care. Patient was discharged after all questions were answered. Critical Care Critical Care Time Critical Care Time: No
--- NOTE | 2024-01-18 10:53 | ECG_ITS ---
APPROVED REPORT Exam: Resting ECG HR:56 bpm ECG Measurements Heart Rate 56 AXES DE 168 P 56 QRSd 120 QRS 62 QT 427 T 38 QTc 419 Conclusion SINUS BRADYCARDIA MODERATE INTRAVENTRICULAR CONDUCTION DELAY [110+ ms QRS DURATION] BORDERLINE ECG Electronically signed by : ADITI FRANKEL, 01/18/2024 16:10:29
[2024-01-18 11:01] VITALS: BP 118/69; PULSE 61; O2SAT 97
[2024-01-18] MEDS: IPRATROPIUM/ALBUTEROL 3 ML NEB 6 ML IH (11:06)
[2024-01-18] MEDS: ACETAMINOPHEN 500MG TAB 1000 MG PO (11:06)
[2024-01-18] MEDS: KETOROLAC 30MG/ML VIAL 15 MG IV (11:07)
[2024-01-18] MEDS: ONDANSETRON 4MG/2ML VIAL 4 MG IV (11:07)
[2024-01-18 11:15] LABS: Chloride 104 mmol/L (98-107); Potassium 3.7 mmoL/L (3.5-5.1); Sodium 137 mmol/L (136-145)
[2024-01-18 11:18] LABS: Alanine Aminotransferase 38 U/L (12-78); Alkaline Phosphatase 123 U/L (38-126); Anion Gap 9.7 mEq/L (5-15); Aspartate Amino Transferase 41 U/L (17-59); Bilirubin,Total 0.6 mg/dl (0.2-1.3); Blood Urea Nitrogen 12 mg/dl (9-20); Calcium 9.1 mg/dl (8.4-10.2); Carbon Dioxide 27 mmol/L (22.0-30.0); Creatinine Clearance Estimated 178 mL/min (50-200); Estimated Glomerular Filt Rate 92 ml/min (>60); GFR (African American) 111 ML/MIN (>60); Glucose 121 mg/dl (74-100); Total Protein,Serum 6.9 g/dl (6.3-8.2)
[2024-01-18 11:19] LABS: Basophils % 0.9 % (0.1-2.0); Eosinophils # 0.3 K/mm3 (0.0-0.4); Eosinophils % 7.3 % (0.1-12.0); Hematocrit 47.8 % (42.0-52.0); Hemoglobin 16.5 g/dL (14.1-18.0); Lymphocytes # 1.2 K/mm3 (0.7-4.5); Lymphocytes % 27.6 % (10-50); Mean Corpuscular HGB Conc 34.5 g/dL (31.8-35.4); Mean Corpuscular Hemoglobin 31.2 pg (27.0-31.2); Mean Corpuscular Volume 90.4 fl (80-94); Mean Platelet Volume 7.6 fl (7.4-10.4); Monocytes # 0.3 K/mm3 (0.1-1.0); Monocytes % 8.1 % (1.7-9.3); Neutrophils # 2.4 K/mm3 (1.8-7.8); Neutrophils % 56.1 % (37.0-80.0); Platelet Count 224 K/mm3 (142-424); Red Blood Count 5.29 M/mm3 (4.60-6.20); Red Cell Distribution Width 12.9 % (11.5-17.5); White Blood Count 4.2 K/mm3 (4.8-10.8)
[2024-01-18 11:30] VITALS: BP 114/72; PULSE 57; O2SAT 97
[2024-01-18 11:45] VITALS: PULSE 61; O2SAT 93
[2024-01-18 12:01] VITALS: BP 138/84; PULSE 57; O2SAT 92
[2024-01-18] MEDS: AMOXICILLIN/CLAVULANATE POTASSIUM 875/125MG TABLET 1 EACH PO (13:19)
[2024-01-18] MEDS: AZITHROMYCIN 250MG TABLET 500 MG PO (13:20)
[2024-01-18] MEDS: predniSONE 20MG TAB 40 MG PO (13:20)
[2024-01-18 13:27] VITALS: BP 115/73; PULSE 56; RESP 16; TEMP 36.8; O2SAT 97
[2024-01-18 13:27] LABS: Albumin Level 4.1 g/dl (3.5-5.0); Albumin/Globulin Ratio 1.5 (1.1-1.8); Globulin 2.8 g/dL (1.3-3.2)
== END 2024-01-18 13:29 | disposition home or self-care (01) ==
PROVIDERS: Emergency Provider Emergency Medicine; PCP Internal Medicine Adolescent Medicine
DX: J18.9 Pneumonia, unspecified organism (principal); R06.2 Wheezing; R11.2 Nausea with vomiting, unspecified; R05.9 Cough, unspecified; J02.9 Acute pharyngitis, unspecified; R09.81 Nasal congestion
CPT/HCPCS: 71046; 80053; 85025; 87636; 93005; 96374; 96375; 99284; J1885; J2405; J7620

== ENCOUNTER 2024-01-18 13:38 | Outpatient (CLI) | payer OTHER, SELFPAY ==
[2024-01-18 14:05] LABS: Basophils # 0.1 K/mm3 (0-0.2); Basophils % 1.4 % (0.1-2.0); Eosinophils # 0.2 K/mm3 (0.0-0.4); Hemoglobin 15.9 g/dL (14.1-18.0); Lymphocytes # 1.3 K/mm3 (0.7-4.5); Lymphocytes % 28.8 % (10-50); Mean Corpuscular HGB Conc 34.6 g/dL (31.8-35.4); Mean Corpuscular Hemoglobin 31.5 pg (27.0-31.2); Mean Platelet Volume 7.5 fl (7.4-10.4); Monocytes # 0.4 K/mm3 (0.1-1.0); Monocytes % 7.8 % (1.7-9.3); Neutrophils # 2.6 K/mm3 (1.8-7.8); Platelet Count 231 K/mm3 (142-424); Red Blood Count 5.06 M/mm3 (4.60-6.20); White Blood Count 4.6 K/mm3 (4.8-10.8)
[2024-01-18 15:12] LABS: Albumin Level 4.1 g/dl (3.5-5.0); Chloride 103 mmol/L (98-107); Potassium 4.2 mmoL/L (3.5-5.1); Sodium 138 mmol/L (136-145)
[2024-01-18 15:14] LABS: Blood Urea Nitrogen 13 mg/dl (9-20); Estimated Glomerular Filt Rate 82 ml/min (>60); GFR (African American) 99 ML/MIN (>60)
[2024-01-18 15:15] LABS: Alanine Aminotransferase 36 U/L (12-78); Alkaline Phosphatase 130 U/L (38-126); Anion Gap 9.2 mEq/L (5-15); Aspartate Amino Transferase 38 U/L (17-59); Bilirubin,Direct 0.4 mg/dl (0.0-0.4); Bilirubin,Indirect 0.1 mg/dL (0.0-0.9); Bilirubin,Total 0.5 mg/dl (0.2-1.3); Bilirubin,Unconjugated 0.1 mg/dL (0.0-1.1); Carbon Dioxide 30 mmol/L (22.0-30.0); Chol/HDL Ratio 8.6 (1-3.5); Cholesterol 180 mg/dl (140-200); Glucose 92 mg/dl (74-100); HDL Cholesterol 21 mg/dl (40-60); Total Protein,Serum 6.6 g/dl (6.3-8.2); Triglycerides 311 mg/dl (30-150); VLDL Cholesterol 62 mg/dL (0-40)
[2024-01-18 15:28] LABS: Direct LDL Cholesterol 101.97 mg/dL (100-129)
[2024-01-18 15:45] LABS: Free T4 (Free Thyroxine) 1.01 ng/dl (0.78-2.19)
[2024-01-18 15:48] LABS: Thyroid Stimulating Hormone 1.52 uIU/mL (0.465-4.68)
== END 2024-01-18 23:59 | disposition home or self-care (01) ==
LOC: LAB 13:39
PROVIDERS: PCP Internal Medicine Adolescent Medicine; Visit Provider Physician Assistant
DX: I25.10 Atherosclerotic heart disease of native coronary artery without angina pectoris (principal); Z82.49 Family history of ischemic heart disease and other diseases of the circulatory system; R93.1 Abnormal findings on diagnostic imaging of heart and coronary circulation; Z72.0 Tobacco use
CPT/HCPCS: 36415; 80048; 80061; 80076; 84439; 84443; 85025

== ENCOUNTER 2024-08-28 14:55 | Emergency (ER) | payer OTHER, SELFPAY ==
[2024-08-28] VITALS (11 sets, daily range): BP systolic 99–137; BP diastolic 56–82; PULSE 60–83; RESP 16–20; TEMP 36.7–36.8; O2SAT 95–99; BMI 36.8
--- OUTSIDE RECORDS SUMMARY | 2024-08-28 15:15 | XMS_ITS | Clinical Summary ---
Author Organization [facility] Address [address] [place] [address] Care Team Providers Care Acid Strength Inspector Name Role Phone Andres Johnson MD Primary Care Provider [phone] Allergies No known active allergies Social History Tobacco Use Types Packs/Day Years Used Date Smoking Tobacco: Every Day Cigarettes 0.8 20 Tobacco Cessation:Ready to Q uit: Not Asked; Counseling Given: Not Answered Sex and Gender Information Value Date Recorded Sex Assigned at Not on file Legal Sex Male 6:13 PM EDT Gender Identity Not on file Sexual Orientation Not on file Last Filed Vital Signs Vital Sign Reading Time Taken Comments Blood Pressure 106/58 01/08/2022 4:59 PM EST Pulse 103 01/08/2022 4:59 PM EST Temperature 36.9 C (98.5 F) 01/08/2022 4:59 PM EST Respiratory Rate 18 01/08/2022 4:59 PM EST Oxygen Saturation 95% 01/08/2022 4:59 PM EST Inhaled Oxygen Concentration - - Weight 121 kg (267 lb) 01/08/2022 2:10 PM EST Height 182.9 cm (6') 01/08/2022 2:10 PM EST Body Mass Index 36.21 01/08/2022 2:10 PM EST Plan of Treatment Health Maintenance Due Date Last Done Comments [facility]-Depression Screening 1980 [facility]-/Child/Adol SDOH Screenings 1980 [facility]-Obesity Intervention 1986 [facility]-Varicella Vaccines (1 of 2 - 13+ 2-dose series) 1993 HPV Vaccines (1 - Male 3-dos e series) 05/11/1995 [facility]-DTaP,Tdap,and Td Vaccine s (2 - Tdap) 10/24/1996 10/23/1996 [facility]- SDOH Screenings 1998 [facility]-Adult SDOH Screenings 1998 [facility]-Hepatitis B Vaccines (2 of 3 - Hep B Twinrix 3-dose series) 02/11/2018 01/14/2018 [id number] Vaccine (3 - season) 2023 06/29/2020, 05/25/2020 [facility]-Influenza Vaccine (#1) 10/09/202401/14, 01/21/2017 [facility]-Zoster Vaccines (1 of 2) 2030 [facility]-Hepatitis A Vaccines Aged Out 01/14/2018 No longer eligible based on patient's age to complete this topic [facility]-HIV Screening Completed 01/08/2022 [facility]-Hepatitis C Screening Completed 01/08/2022 [facility]-HIB Vaccines Aged Out No longer e ligible based on patient's age to complete this topic [facility]-IPV Vaccines Aged Out No longer e ligible based on patient's age to complete this topic [facility]-Pneumococcal Vaccine: Pediatrics (0 to 5 Years) and At-Risk Patients (6 to 49 Years) Aged Out No longer eligible b ased on patient's age to complete this topic [facility]-Rotavirus Vaccines Aged Out No lo nger eligible based on patient's age to complete this topic Procedures Procedure Name Priority Date/Time Associated Diagnosis Comments HEPATITIS C ANTIBODY - ED W/REFLEX TO HCV QUANT PCR STAT 01/08/2022 1:53 PM EST HIV 1/2 ANTIBODY/ANTIGEN SCREEN WITH REFLEX TO HIV I/II DIFFERENTIATION STAT 01/08/2022 1:53 PM EST from Last 3 Months or Most Recently Relevant to Health Maintenance Results * HIV 1 & 2 Antibody/Antigen Screen (01/08/2022 1:53 PM EST) HIV 1 & 2 Antibody/Anti gen Screen Nonreactive Nonreactive 01/08/2022 4:03 PM EST [facility] Blood Venous blood specimen / Unknown Venipuncture / Unknown 01/08/2022 1:53 PM EST 01/08/2022 2:14 PM EST us Princess Blanc MD LAB BLOOD ORDERABLES Final Res ult [facility] [address] [place] [address] * Hepatitis C Antibody - ED (01/08/2022 1:53 PM EST) Hepatitis C Antibody Negative Negative 01/08/2022 3:57 PM EST [facility] Blood Venous blood specimen / Unknown Venipuncture / Unknown 01/08/2022 1:53 PM EST 01/08/2022 2:14 PM EST us Princess Blanc MD LAB BLOOD ORDERABLES Final Res ult Performing Organization Address City/[facility]/ZIP Co de Phone Number [facility] [address] [place] [address] from Last 3 Months or Most Recently Relevant to Health Maintenance [place] [place] [address] Care Teams Acid Strength Inspector Relationship Specialty Start Date End Date Andres Johnson MD [address] [place] [address] [place] [address] PCP - General 06/21/20
--- NOTE | 2024-08-28 15:29 | XR_ITS ---
PROCEDURE INFORMATION: Exam: XR Chest Exam date and time: 08/28/2024 4:06 PM Age: 44 years old Clinical indication: Shortness of breath; Additional info: Short of breath TECHNIQUE: Imaging protocol: Radiologic exam of the chest. Views: 1 view. COMPARISON: CR XR CHEST 2V 01/18/2024 10:27 AM FINDINGS: Lungs: Lung volumes are mildly diminished.There is mild stable elevation of the right hemidiaphragm. The lungs appear clear. No focal areas of consolidation. Pleural spaces: No pleural effusions. Negative for pneumothorax. Heart/Mediastinum: Cardiac silhouette and pulmonary vasculature are within range of normal. Bones/joints: There is no evidence of acute fracture. IMPRESSION: Negative for an acute cardiopulmonary abnormality. Stable chest radiograph.
--- NOTE | 2024-08-28 15:29 | CT_ITS ---
PROCEDURE INFORMATION: Exam: CT Abdomen And Pelvis With Contrast Exam date and time: 08/28/2024 5:55 PM Age: 44 years old Clinical indication: Abdominal pain; Flank; Left; Additional info: Left flank pain TECHNIQUE: Imaging protocol: Computed tomography of the abdomen and pelvis with contrast. Radiation optimization: All CT scans at this facility use at least one of these dose optimization techniques: automated exposure control; mA and/or kV adjustment per patient size (includes targeted exams where dose is matched to clinical indication); or iterative reconstruction. Contrast material: ISOVUE; Contrast volume: 75 ml; Contrast route: IV; COMPARISON: CR XR CHEST PORTABLE 08/28/2024 4:06 PM FINDINGS: Lungs: The visualized lung bases are clear. Pleural spaces: There are no pleural effusions. Heart: The visualized portions of the heart are unremarkable. There is no evidence of pericardial fluid collections. Diaphragm: There is mild to moderate elevation of the right hemidiaphragm. Liver: The liver is otherwise within range of normal. Gallbladder and biliary ducts: Normal. No calcified stones. No ductal dilation. Pancreas: The pancreas is normal. Spleen: The spleen is normal. Adrenal glands: The adrenal glands are normal. Kidneys and ureters: There is a 2.6 cm superior posterior right renal cyst. There is moderate inflammatory nonspecific bilateral perinephric stranding. No ureteric stone disease. No nephrolithiasis. Stomach and bowel: The stomach is normal. The duodenum is unremarkable. Lack of gastrointestinal contrast limits evaluation of bowel. Unopacified loops of small bowel within range of normal. There are pill shaped foci of increased density in a loop of small bowel in the right lower quadrant and in the sigmoid/descending colon junction consistent with residual ingested pills. The colon is otherwise normal. Appendix: A normal appendix is identified. Intraperitoneal space: No evidence of intraperitoneal free air. There is no evidence of free intraperitoneal or pelvic fluid. Vasculature: The aorta demonstrates mild atherosclerotic calcification. There is no evidence of an aortic aneurysm.No abdominal aortic aneurysm. Lymph nodes: There is no evidence of pathologic adenopathy. Urinary bladder: The bladder is partially decompressed. There is moderate nonspecific bladder wall thickening. There is mild perivesicular hazy fat stranding which may reflect edema/inflammation/cystitis. Cannot exclude neoplasm in the appropriate clinical setting. Correlate clinically. Reproductive: The prostate and seminal vesicles are normal. Bones/joints: The thoracolumbar spine demonstrates mild degenerative changes at multiple levels. There is no evidence of acute fracture. Soft tissues: Unremarkable. Other findings: Motion artifact does moderately limit the sensitivity of this examination. IMPRESSION: 1. Mild perivesicular hazy fat stranding which may reflect edema/inflammation/cystitis. Moderate bladder wall thickening consistent with incomplete distention or cystitis. Correlate clinically. 2. Mild hepatomegaly. COMMENTS: Consistent with the [employer]'s Incidental Findings Committee white paper (J Am Mike Radiol 2018): Any incidental renal lesion less than 1 cm or classified as too small to characterize, or any incidental cystic renal lesion characterized as simple-appearing, is likely benign. No follow-up imaging is recommended for these lesions per consensus recommendations based on imaging criteria.
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
--- NOTE | 2024-08-28 15:43 | ECG_ITS ---
APPROVED REPORT Exam: Resting ECG HR:77 bpm ECG Measurements Heart Rate 77 AXES NH 139 P 60 QRSd 111 QRS 51 QT 375 T 9 QTc 406 Conclusion SINUS RHYTHM MODERATE INTRAVENTRICULAR CONDUCTION DELAY [110+ ms QRS DURATION] BORDERLINE ECG UNCONFIRMED REPORT Electronically signed by : JOSÉ MIGUEL KULKARNI, 08/30/2024 01:23:23
[2024-08-28] MEDS: MORPHINE 4MG/ML SYRINGE 4 MG IV (15:44)
[2024-08-28] MEDS: ONDANSETRON 4MG/2ML VIAL 4 MG IV (15:44)
[2024-08-28] MEDS: ACETAMINOPHEN 1,000MG/100ML VIAL 1000 MG IV (15:44)
[2024-08-28] MEDS: FAMOTIDINE 20MG/2ML VIAL 20 MG IV (15:44)
[2024-08-28] MEDS: 0.9 % SODIUM CHLORIDE 1000ML 1,000 ML 999 ML IV (15:44)
[2024-08-28 15:55] LABS: Microscopic, Urine URINE MICROSCOPIC (MICROSCOPIC)
[2024-08-28 15:56] LABS: Hematocrit 48.1 % (42.0-52.0); Hemoglobin 16.1 g/dL (14.1-18.0); Immature Granulocytes % 0.6 %; Mean Corpuscular HGB Conc 33.5 g/dL (31.8-35.4); Mean Corpuscular Hemoglobin 29.7 pg (27.0-31.2); Mean Corpuscular Volume 88.7 fl (80-94); Nucleated Red Blood Cells % 0 %; Platelet Count 247 K/mm3 (142-424); Red Blood Count 5.42 M/mm3 (4.60-6.20); Red Cell Distribution Width-SD 40.7 fL; White Blood Count 12.0 K/mm3 (4.8-10.8)
[2024-08-28 16:07] LABS: Bilirubin,Urine Negative (Negative); Color,Urine YELLOW (Yellow); Glucose,Urine (UA) Negative (Negative); Ketones,Urine Negative (Negative); Leukocyte Esterase,Urine TRACE (Negative); PH,Urine 6.0 (5.0-8.5); Protein,Urine Negative (Negative); Specific Gravity, Urine <= 1.005 (1.005-1.030); Urobilinogen,Urine 1.0 EU/dl (0.2)
[2024-08-28 16:09] LABS: Activated Partial Thrombo Time 27.5 seconds (22.8-30.6)
[2024-08-28 16:13] LABS: Lipase 81 U/L (23-300)
[2024-08-28 16:14] LABS: Magnesium 1.9 mg/dl (1.6-2.3)
[2024-08-28 16:24] LABS: RBC,Urine Occasional #/hpf (0-3)
[2024-08-28 16:28] LABS: Troponin I < 0.01 ng/ml (0.00-0.034)
[2024-08-28 16:38] LABS: Albumin Level 4.6 g/dl (3.5-5.0); Chloride 93 mmol/L (98-107)
[2024-08-28 16:39] LABS: Potassium 3.4 mmoL/L (3.5-5.1); Sodium 134 mmol/L (136-145)
[2024-08-28 16:40] LABS: INR 1.17 (0.9-1.1); Prothrombin Time 12.8 seconds (10.1-12.5)
[2024-08-28 16:41] LABS: Alanine Aminotransferase 33 U/L (12-78); Anion Gap 12.4 mEq/L (5-15); Aspartate Amino Transferase 39 U/L (17-59); Blood Urea Nitrogen 11 mg/dl (9-20); Carbon Dioxide 32 mmol/L (22.0-30.0); Creatinine Clearance Estimated 206 mL/min (50-200); Creatinine,Serum 0.80 mg/dl (0.66-1.25); Estimated Glomerular Filt Rate 105 ml/min (>60); GFR (African American) 127 ML/MIN (>60)
[2024-08-28 16:42] LABS: Albumin/Globulin Ratio 1.4 (1.1-1.8); Alkaline Phosphatase 119 U/L (38-126); Bilirubin,Total 1.1 mg/dl (0.2-1.3); Calcium 9.2 mg/dl (8.4-10.2); Globulin 3.4 g/dL (1.3-3.2); Glucose 154 mg/dl (74-100); Total Protein,Serum 8.0 g/dl (6.3-8.2)
--- NOTE | 2024-08-28 17:57 | PC.NURSE ---
Pt back from radiology
[2024-08-28] MEDS: SODIUM CHLORIDE 0.9% 10ML SYR (RAD ONLY) 10 ML IV (17:58)
[2024-08-28] MEDS: IOPAMIDOL-370 (76%);100ML BOTTLE 75 ML IV (17:59)
[2024-08-28 18:19] LABS: Hepatitis C Ab Qual. W/ RFX NEGATIVE (Negative)
[2024-08-28] MEDS: POTASSIUM CHLORIDE 20MEQ TAB 40 MEQ PO (18:59)
== END 2024-08-28 19:05 | disposition home or self-care (01) ==
PROVIDERS: Nurse Practitioner; Emergency Provider Emergency Medicine; PCP Internal Medicine Adolescent Medicine
DX: N39.0 Urinary tract infection, site not specified (principal)
CPT/HCPCS: 71045; 74177; 80053; 81001; 83690; 83735; 84484; 85025; 85610; 85730; 86803; 87389; 93005; 96361; 96374; 96375; 99285; J0131; J2270; J2405; J7030; Q9967